=== PATIENT | male | born 1940 | race Caucasian/White ===

== ENCOUNTER 2020-12-28 04:05 | Inpatient (IN) ==
[2020-12-28] MEDS ORDERED: Nitroglycerin 0.4 MG TAB.SUBL SL ONE (04:08)
[2020-12-28 04:14] LABS: ABG Base Excess -5 mEq/L (-2 to 3); ABG HCO3 28 mEq/L (21-27); ABG Oxygen Saturation 99 % (95-98); ABG PCO2 86 mmHg (35-45); ABG PH 7.12 pH Units (7.32-7.45); ABG PO2 212 mmHg (85-104); ABG TCO2 31 mEq/L (20-26); Blood Gas VT 450 cc
[2020-12-28 04:52] LABS: ABG Base Excess -2 mEq/L (-2 to 3); ABG HCO3 28 mEq/L (21-27); ABG Oxygen Saturation 99 % (95-98); ABG PCO2 65 mmHg (35-45); ABG PH 7.23 pH Units (7.32-7.45); ABG PO2 171 mmHg (85-104); ABG TCO2 30 mEq/L (20-26); Blood Gas Modality AVAPS; Blood Gas VT 550 cc
[2020-12-28] MEDS ORDERED: Furosemide 40 MG/4 ML VIAL ONE (05:43)
[2020-12-28] MEDS ORDERED: Furosemide 40 MG/4 ML VIAL IVP ONE (05:45)
[2020-12-28 06:00] LABS: Alanine Aminotransferase 13 Units/L (7-52); Albumin 4.5 g/dL (3.5-5.7); Albumin/Globulin Ratio 1.1 (1.1-2.2); Alkaline Phosphatase 85 Units/L (34-104); Aspartate Amino Transferase 16 Units/L (13-39); BUN/Creatinine Ratio 19 (6-26); Bilirubin,Direct 0.1 mg/dL (0.0-0.2); Bilirubin,Indirect 0.4 mg/dL (0.0-1.0); Bilirubin,Total 0.5 mg/dL (0.3-1.0); Blood Urea Nitrogen 20 mg/dL (8-23); Calcium 9.6 mg/dL (8.6-10.3); Carbon Dioxide 28 mEq/L (23-29); Chloride 97 mEq/L (98-107); Globulin 4.2 g/dL (2.4-3.5); Glucose 517 mg/dL (70-105); Osmolality,Calculated 308 (280-300); Sodium 136 mEq/L (136-145); Total Protein 8.7 g/dL (6.4-8.9); Troponin I 0.09 ng/mL (< 0.04); eGFR For African Americans > 60 (> 60); eGFR For Non-African Americans > 60 (> 60)
[2020-12-28 06:36] LABS: INR 1.1; Prothrombin Time 12.7 Seconds (9.4-12.1)
[2020-12-28 06:38] LABS: Activated Partial Thrombo Time 32.3 Seconds (26.0-36.0)
[2020-12-28 07:18] LABS: Hemoglobin 14.6 g/dL (12.9-16.9); Red Blood Count 4.58 M/mcL (4.19-5.50); White Blood Count 14.1 K/mcL (4.3-11.1)
[2020-12-28 07:19] LABS: Basophils # 0.1 K/mcL (0.0-0.2); Basophils % 0.7 %; Eosinophils # 0.5 K/mcL (0.0-0.6); Eosinophils % 3.3 %; Hematocrit 47.6 % (37.5-50.1); Immature Granulocytes % 0.4 % (0-4); Lymphocytes # 5.7 K/mcL (0.6-4.6); Lymphocytes % 40.2 %; Mean Corpuscular HGB Conc 30.7 g/dL (31.6-35.5); Mean Corpuscular Hemoglobin 31.9 pg (28.0-33.3); Mean Corpuscular Volume 103.9 fL (83.0-100.0); Mean Platelet Volume 10.5 fL (9.4-12.4); Monocytes # 1.1 K/mcL (0.0-1.3); Monocytes % 7.5 %; Neutrophils # 6.8 K/mcL (1.6-8.9); Platelet Count 337 K/mcL (140-400); Red Cell Distribution Width 51.3 % (11.5-14.5); Segmented Neutrophils % 47.9 %
[2020-12-28] MEDS ORDERED: Acetaminophen 325 MG TABLET PO PRN (08:12)
[2020-12-28] MEDS ORDERED: *HR* Dextrose 50 % in Water (Vial) 50 ML VIAL IVP PRN (08:12)
[2020-12-28] MEDS ORDERED: Dextrose Gel 15 GM/37.5 ML TUBE PO PRN ×2 (08:12)
[2020-12-28] MEDS ORDERED: Ondansetron 4 MG/2 ML VIAL IVP PRN (08:12)
[2020-12-28] MEDS ORDERED: Naloxone 0.4 MG/ML INJ IVP PRN (08:12)
[2020-12-28] MEDS ORDERED: D5% in Water 1,000 ML IVC PRN (08:12)
[2020-12-28] MEDS ORDERED: Perflutren Lipid Microsphere 1.3 ML in 0.9 % Sodium Chloride 8.7 ML IVP PRN (08:18)
[2020-12-28] MEDS ORDERED: Aspirin 325 MG TABLET PO ONE (08:19)
[2020-12-28] MEDS ORDERED: *HR* Heparin 5,000 UNIT/ML VIAL IVP ONE (08:19)
[2020-12-28] MEDS ORDERED: *HR* Heparin 5,000 UNIT/ML VIAL IVP PRN ×2 (08:19)
[2020-12-28] MEDS ORDERED: Nitroglycerin 0.4 MG TAB.SUBL SL PRN (08:24)
[2020-12-28] MEDS: Heparin 25,000UNIT/250ML 1/2NS 25,000 UNIT/250 ML IV.SOLN IVC SCH (09:13)
[2020-12-28] MEDS: Insulin DETEMIR 100 UNIT/ML X5UNITS SUBQ SCH ×2 (09:14→21:23)
[2020-12-28 09:36] LABS: Heparin anti-factor XA UFH < 0.04 IU/mL (0.30-0.70)
[2020-12-28 09:37] LABS: INR 1.2; Prothrombin Time 13.6 Seconds (9.4-12.1)
[2020-12-28] MEDS: Insulin LISPRO 300 UNITS/3 ML VIAL SUBQ SCH ×3 (13:10→23:26)
[2020-12-28] MEDS: Furosemide 40 MG/4 ML VIAL IVP SCH (21:22)
[2020-12-28] MEDS: Metoprolol 100 MG TABLET PO SCH (21:23)
[2020-12-29 05:17] LABS: BUN/Creatinine Ratio 26 (6-26); Blood Urea Nitrogen 19 mg/dL (8-23); Calcium 9.2 mg/dL (8.6-10.3); Carbon Dioxide 30 mEq/L (23-29); Chloride 99 mEq/L (98-107); Glucose 77 mg/dL (70-105); Osmolality,Calculated 283 (280-300); Potassium 3.7 mEq/L (3.5-5.1); Sodium 136 mEq/L (136-145); eGFR For African Americans > 60 (> 60); eGFR For Non-African Americans > 60 (> 60)
[2020-12-29 05:18] LABS: Chol/HDL Ratio 2.7 (0-4.9)
[2020-12-29] MEDS: Insulin LISPRO 300 UNITS/3 ML VIAL SUBQ SCH ×3 (05:38→17:23)
[2020-12-29 06:38] LABS: Basophils % 0.4 %; Eosinophils # 0.3 K/mcL (0.0-0.6); Eosinophils % 2.9 %; Hematocrit 39.3 % (37.5-50.1); Hemoglobin 12.6 g/dL (12.9-16.9); Immature Granulocytes % 0.3 % (0-4); Lymphocytes # 1.7 K/mcL (0.6-4.6); Lymphocytes % 17.9 %; Mean Corpuscular HGB Conc 32.1 g/dL (31.6-35.5); Mean Corpuscular Hemoglobin 31.3 pg (28.0-33.3); Mean Corpuscular Volume 97.5 fL (83.0-100.0); Mean Platelet Volume 10.1 fL (9.4-12.4); Monocytes # 0.8 K/mcL (0.0-1.3); Neutrophils # 6.6 K/mcL (1.6-8.9); Platelet Count 222 K/mcL (140-400); Red Blood Count 4.03 M/mcL (4.19-5.50); Red Cell Distribution Width 13.6 % (11.5-14.5); Segmented Neutrophils % 70.5 %; White Blood Count 9.4 K/mcL (4.3-11.1)
[2020-12-29] MEDS: Insulin DETEMIR 100 UNIT/ML X5UNITS SUBQ SCH ×2 (07:59→20:52)
[2020-12-29] MEDS: Metoprolol 100 MG TABLET PO SCH ×2 (08:15→20:52)
[2020-12-29] MEDS: Aspirin Enteric Coated 81 MG Tablet PO SCH (08:15)
[2020-12-29] MEDS: Furosemide 40 MG/4 ML VIAL IVP SCH ×2 (08:15→20:52)
[2020-12-29] MEDS: Heparin 25,000UNIT/250ML 1/2NS 25,000 UNIT/250 ML IV.SOLN IVC SCH (08:16)
[2020-12-29] MEDS: *HR* HYDROcodone/Acet 5/325 mg TABLET PO PRN (11:50)
[2020-12-29] MEDS ORDERED: polyethylene glycoL 3350 17 GM POWD.PACK PO PRN (13:48)
[2020-12-30] MEDS: Insulin LISPRO 300 UNITS/3 ML VIAL SUBQ SCH ×4 (00:13→16:27)
[2020-12-30 04:38] LABS: Basophils % 0.3 %; Eosinophils # 0.2 K/mcL (0.0-0.6); Eosinophils % 2.3 %; Hematocrit 43.6 % (37.5-50.1); Hemoglobin 14.1 g/dL (12.9-16.9); Immature Granulocytes % 0.2 % (0-4); Lymphocytes # 1.6 K/mcL (0.6-4.6); Lymphocytes % 17.5 %; Mean Corpuscular HGB Conc 32.3 g/dL (31.6-35.5); Mean Corpuscular Hemoglobin 31.4 pg (28.0-33.3); Mean Corpuscular Volume 97.1 fL (83.0-100.0); Mean Platelet Volume 10.2 fL (9.4-12.4); Monocytes # 0.8 K/mcL (0.0-1.3); Monocytes % 8.9 %; Neutrophils # 6.4 K/mcL (1.6-8.9); Platelet Count 221 K/mcL (140-400); Red Blood Count 4.49 M/mcL (4.19-5.50); Red Cell Distribution Width 13.3 % (11.5-14.5); Segmented Neutrophils % 70.8 %; White Blood Count 9.1 K/mcL (4.3-11.1)
[2020-12-30 04:56] LABS: BUN/Creatinine Ratio 27 (6-26); Blood Urea Nitrogen 22 mg/dL (8-23); Calcium 9.6 mg/dL (8.6-10.3); Carbon Dioxide 31 mEq/L (23-29); Chloride 93 mEq/L (98-107); Glucose 182 mg/dL (70-105); Osmolality,Calculated 282 (280-300); Sodium 132 mEq/L (136-145); eGFR For African Americans > 60 (> 60); eGFR For Non-African Americans > 60 (> 60)
[2020-12-30] MEDS: *HR* HYDROcodone/Acet 5/325 mg TABLET PO PRN (08:01)
[2020-12-30] MEDS: Aspirin Enteric Coated 81 MG Tablet PO SCH (08:02)
[2020-12-30] MEDS: Metoprolol 100 MG TABLET PO SCH (08:02)
[2020-12-30] MEDS: Insulin DETEMIR 100 UNIT/ML X5UNITS SUBQ SCH ×2 (08:02→20:01)
[2020-12-30 09:21] LABS: Estimated Average Glucose 203 mg/dl; Hemoglobin A1C 8.7 %
[2020-12-30] MEDS: Heparin 25,000UNIT/250ML 1/2NS 25,000 UNIT/250 ML IV.SOLN IVC SCH (09:40)
[2020-12-30] MEDS ORDERED: Heparin 1,000 UNITS/500 mL 500 ML ONE (11:24)
[2020-12-30] MEDS ORDERED: ISOVUE-370 200 ML INFUS..BTL ONE (11:24)
[2020-12-30] MEDS ORDERED: *HR* Heparin 10,000 UNIT/10 ML VIAL ONE (11:24)
[2020-12-30] MEDS ORDERED: 0.9 % Sodium Chloride 2,000 ML ONE (11:24)
[2020-12-30] MEDS ORDERED: Nitroglycerin 1,000 MCG/10 ML VIAL IV ONE (11:25)
[2020-12-30] MEDS ORDERED: *HR* Midazolam HCl 2 MG/2 ML VIAL ONE (12:15)
[2020-12-30] MEDS ORDERED: *HR* FentaNYL (PF) 100 MCG/2 ML VIAL ONE (12:15)
[2020-12-30] MEDS: Metoprolol XL (24 HR) Succ 50 MG TAB.ER.24H PO SCH (20:00)
[2020-12-31] MEDS: Insulin LISPRO 300 UNITS/3 ML VIAL SUBQ SCH ×5 (00:47→19:57)
[2020-12-31] MEDS: *HR* HYDROcodone/Acet 5/325 mg TABLET PO PRN ×2 (04:07→11:17)
[2020-12-31 04:23] LABS: Basophils % 0.6 %; Eosinophils # 0.2 K/mcL (0.0-0.6); Eosinophils % 2.6 %; Hematocrit 43.1 % (37.5-50.1); Hemoglobin 14.3 g/dL (12.9-16.9); Immature Granulocytes % 0.3 % (0-4); Lymphocytes # 1.4 K/mcL (0.6-4.6); Lymphocytes % 20.2 %; Mean Corpuscular HGB Conc 33.2 g/dL (31.6-35.5); Mean Corpuscular Hemoglobin 32.3 pg (28.0-33.3); Mean Corpuscular Volume 97.3 fL (83.0-100.0); Mean Platelet Volume 10.1 fL (9.4-12.4); Monocytes # 0.8 K/mcL (0.0-1.3); Neutrophils # 4.6 K/mcL (1.6-8.9); Platelet Count 230 K/mcL (140-400); Red Blood Count 4.43 M/mcL (4.19-5.50); Red Cell Distribution Width 13.3 % (11.5-14.5); Segmented Neutrophils % 65.3 %
[2020-12-31 04:40] LABS: BUN/Creatinine Ratio 26 (6-26); Blood Urea Nitrogen 21 mg/dL (8-23); Calcium 9.7 mg/dL (8.6-10.3); Carbon Dioxide 29 mEq/L (23-29); Chloride 97 mEq/L (98-107); Glucose 187 mg/dL (70-105); Osmolality,Calculated 284 (280-300); Potassium 4.3 mEq/L (3.5-5.1); Sodium 133 mEq/L (136-145); eGFR For African Americans > 60 (> 60); eGFR For Non-African Americans > 60 (> 60)
[2020-12-31] MEDS: Metoprolol XL (24 HR) Succ 50 MG TAB.ER.24H PO SCH ×2 (08:09→20:01)
[2020-12-31] MEDS: Aspirin Enteric Coated 81 MG Tablet PO SCH (08:09)
[2020-12-31] MEDS: Insulin DETEMIR 100 UNIT/ML X5UNITS SUBQ SCH ×2 (09:33→20:56)
[2020-12-31] MEDS: Heparin 25,000UNIT/250ML 1/2NS 25,000 UNIT/250 ML IV.SOLN IVC SCH (11:18)
[2020-12-31] MEDS: Furosemide 40 MG TABLET PO SCH (17:18)
[2020-12-31] MEDS ORDERED: Insulin LISPRO 300 UNITS/3 ML VIAL SUBQ SCH (21:00)
[2021-01-01 02:08] LABS: Basophils % 0.6 %; Eosinophils # 0.3 K/mcL (0.0-0.6); Eosinophils % 3.6 %; Hematocrit 42.2 % (37.5-50.1); Hemoglobin 13.8 g/dL (12.9-16.9); Immature Granulocytes % 0.3 % (0-4); Lymphocytes # 1.6 K/mcL (0.6-4.6); Mean Corpuscular HGB Conc 32.7 g/dL (31.6-35.5); Mean Corpuscular Hemoglobin 31.1 pg (28.0-33.3); Mean Platelet Volume 10.1 fL (9.4-12.4); Monocytes # 0.7 K/mcL (0.0-1.3); Monocytes % 9.1 %; Neutrophils # 4.7 K/mcL (1.6-8.9); Platelet Count 242 K/mcL (140-400); Red Blood Count 4.44 M/mcL (4.19-5.50); Red Cell Distribution Width 13.2 % (11.5-14.5); Segmented Neutrophils % 64.4 %; White Blood Count 7.3 K/mcL (4.3-11.1)
[2021-01-01 02:25] LABS: BUN/Creatinine Ratio 30 (6-26); Blood Urea Nitrogen 28 mg/dL (8-23); Calcium 9.6 mg/dL (8.6-10.3); Carbon Dioxide 25 mEq/L (23-29); Chloride 96 mEq/L (98-107); Glucose 240 mg/dL (70-105); Osmolality,Calculated 281 (280-300); Potassium 4.3 mEq/L (3.5-5.1); Sodium 129 mEq/L (136-145); eGFR For African Americans > 60 (> 60); eGFR For Non-African Americans > 60 (> 60)
[2021-01-01] MEDS: *HR* HYDROcodone/Acet 5/325 mg TABLET PO PRN (07:53)
[2021-01-01] MEDS: Metoprolol XL (24 HR) Succ 50 MG TAB.ER.24H PO SCH (07:53)
[2021-01-01] MEDS: Aspirin Enteric Coated 81 MG Tablet PO SCH (07:53)
[2021-01-01] MEDS: Furosemide 40 MG TABLET PO SCH ×2 (07:53→12:01)
[2021-01-01] MEDS ORDERED: Isosorbide MONOnitrate (24 HR) 60 MG TAB.ER.24H PO SCH (09:00)
[2021-01-01] MEDS: Insulin LISPRO 300 UNITS/3 ML VIAL SUBQ SCH ×3 (11:03→17:02)
[2021-01-01] MEDS: Insulin DETEMIR 100 UNIT/ML X5UNITS SUBQ SCH (11:17)
[2021-01-01] MEDS: Heparin 25,000UNIT/250ML 1/2NS 25,000 UNIT/250 ML IV.SOLN IVC SCH (11:18)
[2021-01-01] MEDS ORDERED: 0.9 % Sodium Chloride 500 ML IVC ONE (11:54)
[2021-01-01 16:27] VITALS: BP 126/67
== END 2021-01-01 18:20 | disposition short-term general hospital (02) | DRG 280 ==
LOC: EMEROOARM 04:05 → 2NNU 04:05 → SUATTDRO 08:31
PROVIDERS: ADMIT Family Medicine; ATTEND Student in an Organized Health Care Education/Training Program

== ENCOUNTER 2021-04-18 16:52 | Inpatient (IN) ==
[2021-04-18 17:43] LABS: Basophils % 0.1 %; Eosinophils # 0.1 K/mcL (0.0-0.6); Eosinophils % 0.4 %; Hematocrit 34.4 % (37.5-50.1); Hemoglobin 11.3 g/dL (12.9-16.9); Immature Granulocytes % 0.7 % (0-4); Lymphocytes # 1.2 K/mcL (0.6-4.6); Lymphocytes % 9.1 %; Mean Corpuscular HGB Conc 32.8 g/dL (31.6-35.5); Mean Corpuscular Hemoglobin 31.7 pg (28.0-33.3); Mean Corpuscular Volume 96.4 fL (83.0-100.0); Monocytes # 1.5 K/mcL (0.0-1.3); Neutrophils # 10.6 K/mcL (1.6-8.9); Platelet Count 233 K/mcL (140-400); Red Blood Count 3.57 M/mcL (4.19-5.50); Red Cell Distribution Width 13.5 % (11.5-14.5); Segmented Neutrophils % 78.7 %; White Blood Count 13.5 K/mcL (4.3-11.1)
[2021-04-18] MEDS ORDERED: Morphine Sulfate 2 MG/ML SYRINGE IVP STA (17:51)
[2021-04-18] MEDS ORDERED: MetroNIDAZOLE 500 MG/100 ML 500 MG/100 ML BAG IVPB ONE (18:01)
[2021-04-18] MEDS ORDERED: Vancomycin 1,500 MG/265 ML IV.SOLN IVPB ONE (18:01)
[2021-04-18 18:07] LABS: Alanine Aminotransferase 10 Units/L (7-52); Albumin 3.7 g/dL (3.5-5.7); Alkaline Phosphatase 57 Units/L (34-104); Aspartate Amino Transferase 13 Units/L (13-39); BUN/Creatinine Ratio 22 (6-26); Blood Urea Nitrogen 22 mg/dL (8-23); Calcium 9.1 mg/dL (8.6-10.3); Carbon Dioxide 25 mEq/L (23-29); Chloride 94 mEq/L (98-107); Globulin 3.8 g/dL (2.4-3.5); Glucose 138 mg/dL (70-105); Osmolality,Calculated 274 (280-300); Potassium 3.6 mEq/L (3.5-5.1); Sodium 129 mEq/L (136-145); Total Protein 7.5 g/dL (6.4-8.9); Troponin I 0.03 ng/mL (< 0.04); eGFR For African Americans > 60 (> 60); eGFR For Non-African Americans > 60 (> 60)
[2021-04-18 18:20] LABS: Thyroid Stimulating Hormone 1.697 mcIU/mL (0.340-5.600)
[2021-04-18] MEDS ORDERED: Clindamycin 600 MG/50 ML 600 MG/50 ML IV.SOLN IVPB ONE (19:00)
[2021-04-18 19:38] LABS: Bilirubin,Urine Negative (Negative); Blood,Urine Negative (Negative); Clarity,Urine Clear (Clear); Color,Urine Yellow (Yellow); Glucose,Urine (UA) Normal (Normal); Hyaline Casts,Urine Few per lpf (None Seen); Ketones,Urine Negative (Negative); Leukocyte Esterase,Urine Negative (Negative); Mucus,Urine Few per lpf (None-Few); Nitrite,Urine Negative (Negative); Protein,Urine 30 mg/dL (Neg-Trace); RBC,Urine 0-3 per hpf (0-3); Specific Gravity,Urine 1.017 (1.010-1.025); Squamous Epithelial Cell,Urine Few per hpf (None-Few); Urobilinogen,Urine Normal (Normal); WBC,Urine 0-3 per hpf (0-3)
[2021-04-18] MEDS ORDERED: Acetaminophen IV 1,000 MG/100 ML BAG IVPB PRN (20:33)
[2021-04-18] MEDS ORDERED: Bupivacaine-MPF 0.25% 10 ML VIAL ONE (20:38)
[2021-04-18] MEDS ORDERED: *HR* Midazolam HCl 2 MG/2 ML VIAL ONE (20:41)
[2021-04-18 21:12] LABS: Adenovirus Not Detected (Not Detect); Bordetella Pertussis Not Detected (Not Detect); Chlamydophila pneumoniae Not Detected (Not Detect); Coronavirus 229E Not Detected (Not Detect); Coronavirus HKU1 Not Detected (Not Detect); Coronavirus NL63 Not Detected (Not Detect); Coronavirus OC43 Not Detected (Not Detect); Human Metapneumovirus Not Detected (Not Detect); Human Rhinovirus/Enterovirus Not Detected (Not Detect); Influenza A Subtype 2009 H1 Not Detected (Not Detect); Influenza B Not Detected (Not Detect); Mycoplasma pneumoniae Not Detected (Not Detect); Parainfluenza Virus 1 Not Detected (Not Detect); Parainfluenza Virus 2 Not Detected (Not Detect); Parainfluenza Virus 3 Not Detected (Not Detect); Parainfluenza Virus 4 Not Detected (Not Detect); Respiratory Syncytial Virus Not Detected (Not Detect); SARS-CoV-2 Not Detected (Not Detect)
[2021-04-18] MEDS ORDERED: Vancomycin 1,000 MG VIAL ONE (21:16)
[2021-04-18] MEDS ORDERED: Naloxone 0.4 MG/ML INJ IVP PRN (23:28)
[2021-04-19] MEDS ORDERED: *HR* Dextrose 50 % in Water (Vial) 50 ML VIAL IVP PRN ×2 (02:47→03:27)
[2021-04-19] MEDS ORDERED: D5% in Water 1,000 ML IVC PRN ×2 (02:47→03:27)
[2021-04-19] MEDS ORDERED: Dextrose Gel 15 GM/37.5 ML TUBE PO PRN ×4 (02:47→03:27)
[2021-04-19] MEDS ORDERED: Naloxone 0.4 MG/ML INJ IVP PRN (03:27)
[2021-04-19] MEDS ORDERED: Acetaminophen IV 1,000 MG/100 ML BAG IVPB PRN (03:27)
[2021-04-19] MEDS: Insulin LISPRO 300 UNITS/3 ML VIAL SUBQ SCH ×5 (05:32→22:00)
[2021-04-19] MEDS ORDERED: Insulin LISPRO 300 UNITS/3 ML VIAL SUBQ SCH (06:00)
[2021-04-19 07:34] LABS: Basophils % 0.3 %; Eosinophils # 0.2 K/mcL (0.0-0.6); Eosinophils % 1.4 %; Hematocrit 37.6 % (37.5-50.1); Immature Granulocytes % 0.4 % (0-4); Lymphocytes # 1.2 K/mcL (0.6-4.6); Lymphocytes % 11.1 %; Mean Corpuscular HGB Conc 31.9 g/dL (31.6-35.5); Mean Corpuscular Volume 97.2 fL (83.0-100.0); Mean Platelet Volume 9.8 fL (9.4-12.4); Monocytes # 1.1 K/mcL (0.0-1.3); Monocytes % 10.7 %; Platelet Count 232 K/mcL (140-400); Red Blood Count 3.87 M/mcL (4.19-5.50); Red Cell Distribution Width 13.7 % (11.5-14.5); Segmented Neutrophils % 76.1 %; White Blood Count 10.5 K/mcL (4.3-11.1)
[2021-04-19 07:50] LABS: Alanine Aminotransferase 10 Units/L (7-52); Albumin 3.6 g/dL (3.5-5.7); Albumin/Globulin Ratio 0.9 (1.1-2.2); Alkaline Phosphatase 56 Units/L (34-104); Aspartate Amino Transferase 14 Units/L (13-39); BUN/Creatinine Ratio 23 (6-26); Bilirubin,Total 0.9 mg/dL (0.3-1.0); Blood Urea Nitrogen 21 mg/dL (8-23); Carbon Dioxide 23 mEq/L (23-29); Chloride 99 mEq/L (98-107); Globulin 3.9 g/dL (2.4-3.5); Glucose 81 mg/dL (70-105); Magnesium 1.5 mg/dL (1.6-2.6); Osmolality,Calculated 276 (280-300); Phosphorous 2.9 mg/dL (2.7-4.5); Potassium 3.6 mEq/L (3.5-5.1); Sodium 132 mEq/L (136-145); Total Protein 7.5 g/dL (6.4-8.9); eGFR For African Americans > 60 (> 60); eGFR For Non-African Americans > 60 (> 60)
[2021-04-19] MEDS ORDERED: Vancomycin 1,250 MG/262.5 ML IV.SOLN IVPB SCH (08:00)
[2021-04-19] MEDS: Vancomycin 1,250 MG/262.5 ML IV.SOLN IVPB SCH ×2 (08:27→22:01)
[2021-04-19] MEDS: MetroNIDAZOLE 500 MG/100 ML 500 MG/100 ML BAG IVPB SCH ×2 (10:39→17:17)
[2021-04-19] MEDS: Clindamycin 600 MG/50 ML 600 MG/50 ML IV.SOLN IVPB SCH ×2 (10:58→17:16)
[2021-04-20] MEDS: Acetaminophen 325 MG TABLET PO PRN (00:07)
[2021-04-20] MEDS: MetroNIDAZOLE 500 MG/100 ML 500 MG/100 ML BAG IVPB SCH ×3 (00:11→16:14)
[2021-04-20] MEDS: Clindamycin 600 MG/50 ML 600 MG/50 ML IV.SOLN IVPB SCH ×3 (00:11→16:18)
[2021-04-20 02:11] LABS: Basophils % 0.2 %; Eosinophils # 0.2 K/mcL (0.0-0.6); Eosinophils % 1.6 %; Hematocrit 33.7 % (37.5-50.1); Hemoglobin 11.1 g/dL (12.9-16.9); Immature Granulocytes % 0.5 % (0-4); Lymphocytes % 9.4 %; Mean Corpuscular HGB Conc 32.9 g/dL (31.6-35.5); Mean Corpuscular Hemoglobin 31.3 pg (28.0-33.3); Mean Corpuscular Volume 94.9 fL (83.0-100.0); Mean Platelet Volume 9.7 fL (9.4-12.4); Monocytes # 1.1 K/mcL (0.0-1.3); Neutrophils # 7.8 K/mcL (1.6-8.9); Platelet Count 235 K/mcL (140-400); Red Blood Count 3.55 M/mcL (4.19-5.50); Red Cell Distribution Width 13.4 % (11.5-14.5); Segmented Neutrophils % 77.3 %; White Blood Count 10.1 K/mcL (4.3-11.1)
[2021-04-20 02:28] LABS: BUN/Creatinine Ratio 17 (6-26); Blood Urea Nitrogen 14 mg/dL (8-23); Calcium 8.6 mg/dL (8.6-10.3); Carbon Dioxide 21 mEq/L (23-29); Chloride 97 mEq/L (98-107); Glucose 231 mg/dL (70-105); Osmolality,Calculated 272 (280-300); Potassium 3.7 mEq/L (3.5-5.1); Sodium 127 mEq/L (136-145); eGFR For African Americans > 60 (> 60); eGFR For Non-African Americans > 60 (> 60)
[2021-04-20] MEDS ORDERED: Nitroglycerin 0.4 MG TAB.SUBL SL PRN (07:59)
[2021-04-20] MEDS: Vancomycin 1,250 MG/262.5 ML IV.SOLN IVPB SCH (08:10)
[2021-04-20] MEDS: Insulin LISPRO 300 UNITS/3 ML VIAL SUBQ SCH ×4 (08:20→20:20)
[2021-04-20] MEDS: DilTIAZem CD (24hr) 240 MG CAP.ER.24H PO SCH (08:38)
[2021-04-20] MEDS: Isosorbide MONOnitrate (24 HR) 60 MG TAB.ER.24H PO SCH (08:38)
[2021-04-20] MEDS: Furosemide 40 MG TABLET PO SCH (08:38)
[2021-04-20] MEDS: Aspirin Enteric Coated 81 MG Tablet PO SCH (08:38)
[2021-04-20] MEDS: Metoprolol 100 MG TABLET PO SCH ×2 (08:38→21:40)
[2021-04-21] MEDS: Vancomycin 1,250 MG/262.5 ML IV.SOLN IVPB SCH ×2 (00:15→09:44)
[2021-04-21] MEDS: MetroNIDAZOLE 500 MG/100 ML 500 MG/100 ML BAG IVPB SCH ×2 (00:17→09:43)
[2021-04-21 03:19] LABS: Hematocrit 31.9 % (37.5-50.1); Hemoglobin 10.5 g/dL (12.9-16.9); Immature Granulocytes % 0.5 % (0-4); Lymphocytes % 13.5 %; Mean Corpuscular HGB Conc 32.9 g/dL (31.6-35.5); Mean Corpuscular Hemoglobin 31.3 pg (28.0-33.3); Mean Corpuscular Volume 95.2 fL (83.0-100.0); Mean Platelet Volume 9.9 fL (9.4-12.4); Monocytes % 11.6 %; Platelet Count 270 K/mcL (140-400); Red Blood Count 3.35 M/mcL (4.19-5.50); Red Cell Distribution Width 13.4 % (11.5-14.5); Segmented Neutrophils % 71.5 %; White Blood Count 9.9 K/mcL (4.3-11.1)
[2021-04-21 03:20] LABS: Basophils % 0.3 %; Eosinophils # 0.3 K/mcL (0.0-0.6); Eosinophils % 2.6 %; Lymphocytes # 1.3 K/mcL (0.6-4.6); Monocytes # 1.2 K/mcL (0.0-1.3); Neutrophils # 7.1 K/mcL (1.6-8.9)
[2021-04-21 03:38] LABS: BUN/Creatinine Ratio 20 (6-26); Blood Urea Nitrogen 19 mg/dL (8-23); Calcium 8.9 mg/dL (8.6-10.3); Carbon Dioxide 22 mEq/L (23-29); Chloride 96 mEq/L (98-107); Glucose 238 mg/dL (70-105); Osmolality,Calculated 274 (280-300); Sodium 127 mEq/L (136-145); eGFR For African Americans > 60 (> 60); eGFR For Non-African Americans > 60 (> 60)
[2021-04-21] MEDS: Isosorbide MONOnitrate (24 HR) 60 MG TAB.ER.24H PO SCH (09:43)
[2021-04-21] MEDS: Metoprolol 100 MG TABLET PO SCH ×2 (09:43→22:30)
[2021-04-21] MEDS: Aspirin Enteric Coated 81 MG Tablet PO SCH (09:43)
[2021-04-21] MEDS: Insulin LISPRO 300 UNITS/3 ML VIAL SUBQ SCH ×4 (09:43→22:29)
[2021-04-21] MEDS: DilTIAZem CD (24hr) 240 MG CAP.ER.24H PO SCH (09:43)
[2021-04-21] MEDS: Furosemide 40 MG TABLET PO SCH (09:44)
[2021-04-21] MEDS ORDERED: cefTRIAXone 2,000 MG in Water for inj. (sterile) 20 ML IVPB SCH (11:00)
[2021-04-21] MEDS: cefTRIAXone 2,000 MG in Water for inj. (sterile) 20 ML IVP SCH (12:03)
[2021-04-21] MEDS: Insulin DETEMIR 100 UNIT/ML X5UNITS SUBQ SCH (12:03)
[2021-04-21] MEDS: metroNIDAZOLE 500 MG TABLET PO SCH ×2 (17:07→22:30)
[2021-04-21] MEDS: Acetaminophen 325 MG TABLET PO PRN (22:30)
[2021-04-21] MEDS: Lactobacillus 1 EACH CAP.SPRINK PO SCH (22:30)
[2021-04-22 03:54] LABS: Basophils % 0.6 %; Eosinophils # 0.4 K/mcL (0.0-0.6); Eosinophils % 5.1 %; Hematocrit 31.1 % (37.5-50.1); Hemoglobin 10.1 g/dL (12.9-16.9); Immature Granulocytes % 0.7 % (0-4); Lymphocytes # 1.1 K/mcL (0.6-4.6); Lymphocytes % 14.8 %; Mean Corpuscular HGB Conc 32.5 g/dL (31.6-35.5); Mean Corpuscular Hemoglobin 31.3 pg (28.0-33.3); Mean Corpuscular Volume 96.3 fL (83.0-100.0); Mean Platelet Volume 9.8 fL (9.4-12.4); Monocytes # 0.9 K/mcL (0.0-1.3); Monocytes % 12.3 %; Neutrophils # 4.8 K/mcL (1.6-8.9); Platelet Count 273 K/mcL (140-400); Red Blood Count 3.23 M/mcL (4.19-5.50); Red Cell Distribution Width 13.6 % (11.5-14.5); Segmented Neutrophils % 66.5 %; White Blood Count 7.2 K/mcL (4.3-11.1)
[2021-04-22 04:14] LABS: BUN/Creatinine Ratio 19 (6-26); Blood Urea Nitrogen 16 mg/dL (8-23); C-Reactive Protein 181 mg/L (Less than 10); Calcium 8.8 mg/dL (8.6-10.3); Carbon Dioxide 26 mEq/L (23-29); Chloride 97 mEq/L (98-107); Glucose 256 mg/dL (70-105); Osmolality,Calculated 278 (280-300); Sodium 129 mEq/L (136-145); eGFR For African Americans > 60 (> 60); eGFR For Non-African Americans > 60 (> 60)
[2021-04-22] MEDS: Insulin DETEMIR 100 UNIT/ML X5UNITS SUBQ SCH (08:48)
[2021-04-22] MEDS: Insulin LISPRO 300 UNITS/3 ML VIAL SUBQ SCH ×4 (08:48→21:06)
[2021-04-22] MEDS: cefTRIAXone 2,000 MG in Water for inj. (sterile) 20 ML IVP SCH (08:50)
[2021-04-22] MEDS: metroNIDAZOLE 500 MG TABLET PO SCH ×3 (08:51→21:04)
[2021-04-22] MEDS: Aspirin Enteric Coated 81 MG Tablet PO SCH (08:51)
[2021-04-22] MEDS: Lactobacillus 1 EACH CAP.SPRINK PO SCH ×2 (08:52→21:04)
[2021-04-22] MEDS: Metoprolol 100 MG TABLET PO SCH ×2 (08:52→21:04)
[2021-04-22] MEDS: Furosemide 40 MG TABLET PO SCH (08:52)
[2021-04-22] MEDS: DilTIAZem CD (24hr) 240 MG CAP.ER.24H PO SCH (08:52)
[2021-04-22] MEDS: Isosorbide MONOnitrate (24 HR) 60 MG TAB.ER.24H PO SCH (08:52)
[2021-04-22] MEDS ORDERED: Insulin DETEMIR 100 UNIT/ML X5UNITS SUBQ ONE (10:35)
[2021-04-23 01:03] LABS: Basophils # 0.1 K/mcL (0.0-0.2); Basophils % 0.6 %; Eosinophils # 0.5 K/mcL (0.0-0.6); Eosinophils % 5.6 %; Hematocrit 31.8 % (37.5-50.1); Hemoglobin 10.5 g/dL (12.9-16.9); Immature Granulocytes % 0.6 % (0-4); Lymphocytes # 1.4 K/mcL (0.6-4.6); Lymphocytes % 17.7 %; Mean Corpuscular Hemoglobin 31.7 pg (28.0-33.3); Mean Corpuscular Volume 96.1 fL (83.0-100.0); Mean Platelet Volume 9.9 fL (9.4-12.4); Monocytes % 12.2 %; Neutrophils # 5.1 K/mcL (1.6-8.9); Platelet Count 326 K/mcL (140-400); Red Blood Count 3.31 M/mcL (4.19-5.50); Red Cell Distribution Width 13.6 % (11.5-14.5); Segmented Neutrophils % 63.3 %
[2021-04-23 01:22] LABS: BUN/Creatinine Ratio 23 (6-26); Blood Urea Nitrogen 21 mg/dL (8-23); Calcium 8.9 mg/dL (8.6-10.3); Carbon Dioxide 27 mEq/L (23-29); Chloride 98 mEq/L (98-107); Glucose 228 mg/dL (70-105); Osmolality,Calculated 284 (280-300); Sodium 132 mEq/L (136-145); eGFR For African Americans > 60 (> 60); eGFR For Non-African Americans > 60 (> 60)
[2021-04-23] MEDS: Aspirin Enteric Coated 81 MG Tablet PO SCH (07:39)
[2021-04-23] MEDS: metroNIDAZOLE 500 MG TABLET PO SCH ×3 (07:39→22:26)
[2021-04-23] MEDS: Lactobacillus 1 EACH CAP.SPRINK PO SCH ×2 (07:39→22:26)
[2021-04-23] MEDS: Metoprolol 100 MG TABLET PO SCH ×2 (07:40→22:27)
[2021-04-23] MEDS: Furosemide 40 MG TABLET PO SCH (07:40)
[2021-04-23] MEDS: DilTIAZem CD (24hr) 240 MG CAP.ER.24H PO SCH (07:40)
[2021-04-23] MEDS: Isosorbide MONOnitrate (24 HR) 60 MG TAB.ER.24H PO SCH (07:40)
[2021-04-23] MEDS: cefTRIAXone 2,000 MG in Water for inj. (sterile) 20 ML IVP SCH (07:41)
[2021-04-23] MEDS: Insulin DETEMIR 100 UNIT/ML X5UNITS SUBQ SCH (07:41)
[2021-04-23] MEDS: Insulin LISPRO 300 UNITS/3 ML VIAL SUBQ SCH ×4 (07:41→22:28)
[2021-04-23] MEDS: Acetaminophen 325 MG TABLET PO PRN (11:50)
[2021-04-24 04:51] LABS: Hematocrit 33.8 % (37.5-50.1); Hemoglobin 11.3 g/dL (12.9-16.9); Mean Corpuscular HGB Conc 33.4 g/dL (31.6-35.5); Mean Corpuscular Hemoglobin 31.7 pg (28.0-33.3); Mean Corpuscular Volume 94.9 fL (83.0-100.0); Mean Platelet Volume 9.8 fL (9.4-12.4); Platelet Count 356 K/mcL (140-400); Red Blood Count 3.56 M/mcL (4.19-5.50); Red Cell Distribution Width 13.5 % (11.5-14.5); White Blood Count 7.1 K/mcL (4.3-11.1)
[2021-04-24 05:11] LABS: BUN/Creatinine Ratio 19 (6-26); Blood Urea Nitrogen 16 mg/dL (8-23); Calcium 9.1 mg/dL (8.6-10.3); Carbon Dioxide 28 mEq/L (23-29); Chloride 97 mEq/L (98-107); Glucose 181 mg/dL (70-105); Osmolality,Calculated 278 (280-300); Potassium 4.5 mEq/L (3.5-5.1); Sodium 131 mEq/L (136-145); eGFR For African Americans > 60 (> 60); eGFR For Non-African Americans > 60 (> 60)
[2021-04-24] MEDS: Isosorbide MONOnitrate (24 HR) 60 MG TAB.ER.24H PO SCH (08:46)
[2021-04-24] MEDS: DilTIAZem CD (24hr) 240 MG CAP.ER.24H PO SCH (08:46)
[2021-04-24] MEDS: Metoprolol 100 MG TABLET PO SCH ×2 (08:46→21:03)
[2021-04-24] MEDS: Lactobacillus 1 EACH CAP.SPRINK PO SCH ×2 (08:46→21:03)
[2021-04-24] MEDS: metroNIDAZOLE 500 MG TABLET PO SCH ×3 (08:46→21:03)
[2021-04-24] MEDS: Aspirin Enteric Coated 81 MG Tablet PO SCH (08:47)
[2021-04-24] MEDS: Insulin DETEMIR 100 UNIT/ML X5UNITS SUBQ SCH (08:47)
[2021-04-24] MEDS: Insulin LISPRO 300 UNITS/3 ML VIAL SUBQ SCH ×4 (08:47→21:03)
[2021-04-24] MEDS: cefTRIAXone 2,000 MG in Water for inj. (sterile) 20 ML IVP SCH (08:48)
[2021-04-24] MEDS: Furosemide 40 MG TABLET PO SCH (08:48)
[2021-04-24 11:27] LABS: INR 1.6
[2021-04-24 11:29] LABS: Activated Partial Thrombo Time 29.7 Seconds (26.0-36.0)
[2021-04-24] MEDS: Acetaminophen 325 MG TABLET PO PRN (21:03)
[2021-04-25 05:16] LABS: Hematocrit 35.2 % (37.5-50.1); Hemoglobin 11.7 g/dL (12.9-16.9); Mean Corpuscular HGB Conc 33.2 g/dL (31.6-35.5); Mean Corpuscular Hemoglobin 31.5 pg (28.0-33.3); Mean Corpuscular Volume 94.6 fL (83.0-100.0); Mean Platelet Volume 9.6 fL (9.4-12.4); Platelet Count 371 K/mcL (140-400); Red Blood Count 3.72 M/mcL (4.19-5.50); Red Cell Distribution Width 13.5 % (11.5-14.5); White Blood Count 5.9 K/mcL (4.3-11.1)
[2021-04-25 05:31] LABS: BUN/Creatinine Ratio 21 (6-26); Blood Urea Nitrogen 16 mg/dL (8-23); Carbon Dioxide 26 mEq/L (23-29); Chloride 99 mEq/L (98-107); Glucose 177 mg/dL (70-105); Osmolality,Calculated 282 (280-300); Sodium 133 mEq/L (136-145); eGFR For African Americans > 60 (> 60); eGFR For Non-African Americans > 60 (> 60)
[2021-04-25] MEDS: Insulin LISPRO 300 UNITS/3 ML VIAL SUBQ SCH ×3 (07:34→16:14)
[2021-04-25] MEDS: Insulin DETEMIR 100 UNIT/ML X5UNITS SUBQ SCH (07:46)
[2021-04-25] MEDS: Aspirin Enteric Coated 81 MG Tablet PO SCH (07:46)
[2021-04-25] MEDS: Isosorbide MONOnitrate (24 HR) 60 MG TAB.ER.24H PO SCH (07:47)
[2021-04-25] MEDS: Metoprolol 100 MG TABLET PO SCH (07:47)
[2021-04-25] MEDS: metroNIDAZOLE 500 MG TABLET PO SCH ×2 (07:47→16:14)
[2021-04-25] MEDS: Lactobacillus 1 EACH CAP.SPRINK PO SCH (07:47)
[2021-04-25] MEDS: cefTRIAXone 2,000 MG in Water for inj. (sterile) 20 ML IVP SCH (07:47)
[2021-04-25] MEDS: DilTIAZem CD (24hr) 240 MG CAP.ER.24H PO SCH (07:47)
[2021-04-25] MEDS: Furosemide 40 MG TABLET PO SCH (07:47)
[2021-04-25] MEDS ORDERED: *HR* Heparin 10,000 UNIT/10 ML VIAL ONE (08:26)
[2021-04-25] MEDS ORDERED: Heparin 1,000 UNITS/500 mL 500 ML ONE ×2 (08:26→09:55)
[2021-04-25] MEDS ORDERED: 0.9 % Sodium Chloride 1,000 ML ONE ×2 (08:26→08:34)
[2021-04-25] MEDS ORDERED: Isovue-300 200 mL Infus..BTL ONE (08:26)
[2021-04-25] MEDS ORDERED: *HR* FentaNYL (PF) 100 MCG/2 ML VIAL ONE (08:29)
[2021-04-25] MEDS ORDERED: *HR* Midazolam HCl 2 MG/2 ML VIAL ONE (08:29)
[2021-04-25] MEDS ORDERED: *HR* HYDROcodone/Acet 5/325 mg TABLET PO PRN (10:59)
[2021-04-25] MEDS ORDERED: Ondansetron 4 MG/2 ML VIAL IVP PRN (10:59)
[2021-04-25 16:55] VITALS: BP 146/73
[2021-04-25 17:36] LABS: Adenovirus Not Detected (Not Detect); Bordetella Pertussis Not Detected (Not Detect); Chlamydophila pneumoniae Not Detected (Not Detect); Coronavirus 229E Not Detected (Not Detect); Coronavirus HKU1 Not Detected (Not Detect); Coronavirus NL63 Not Detected (Not Detect); Coronavirus OC43 Not Detected (Not Detect); Human Metapneumovirus Not Detected (Not Detect); Human Rhinovirus/Enterovirus Not Detected (Not Detect); Influenza A Subtype 2009 H1 Not Detected (Not Detect); Influenza B Not Detected (Not Detect); Mycoplasma pneumoniae Not Detected (Not Detect); Parainfluenza Virus 1 Not Detected (Not Detect); Parainfluenza Virus 2 Not Detected (Not Detect); Parainfluenza Virus 3 Not Detected (Not Detect); Parainfluenza Virus 4 Not Detected (Not Detect); Respiratory Syncytial Virus Not Detected (Not Detect); SARS-CoV-2 Not Detected (Not Detect)
== END 2021-04-25 18:47 | disposition other institution (70) | DRG 853 ==
LOC: EMEROOARM 16:52 → 3ANU 16:52 → SUATTDRO 20:44 → 3ANU 20:46 → 2ANU 21:57 → SUATTDRO 04-19 18:30
PROVIDERS: ADMIT Family Medicine; ATTEND Family Medicine

== ENCOUNTER 2022-01-18 19:11 | Inpatient (IN) ==
[2022-01-18] MEDS ORDERED: Tdap (Boostrix) Vaccine 0.5 ML SYRINGE IM ONE (19:48)
[2022-01-18] MEDS ORDERED: Cefepime HCl 2,000 MG in 0.9 % Sodium Chloride 10 ML IVP ONE (19:48)
[2022-01-18] MEDS ORDERED: 0.9 % Sodium Chloride 1,000 ML IV ONE (19:48)
[2022-01-18 19:58] LABS: Basophils % 0.3 %; Eosinophils # 0.1 K/mcL (0.0-0.6); Eosinophils % 0.7 %; Hematocrit 31.4 % (37.5-50.1); Hemoglobin 9.7 g/dL (12.9-16.9); Immature Granulocytes % 0.3 % (0-4); Lymphocytes # 0.4 K/mcL (0.6-4.6); Lymphocytes % 4.3 %; Mean Corpuscular HGB Conc 30.9 g/dL (31.6-35.5); Mean Corpuscular Hemoglobin 28.8 pg (28.0-33.3); Mean Corpuscular Volume 93.2 fL (83.0-100.0); Mean Platelet Volume 9.3 fL (9.4-12.4); Monocytes # 0.8 K/mcL (0.0-1.3); Monocytes % 9.2 %; Neutrophils # 7.6 K/mcL (1.6-8.9); Platelet Count 314 K/mcL (140-400); Red Blood Count 3.37 M/mcL (4.19-5.50); Red Cell Distribution Width 15.1 % (11.5-14.5); Segmented Neutrophils % 85.2 %; White Blood Count 8.9 K/mcL (4.3-11.1)
[2022-01-18] MEDS ORDERED: Vancomycin 1,250 MG/262.5 ML IV.SOLN IVPB ONE (20:00)
[2022-01-18 20:06] LABS: INR 1.4
[2022-01-18 20:08] LABS: Activated Partial Thrombo Time 35.4 Seconds (26.0-36.0)
[2022-01-18 20:52] LABS: Bacteria,Urine Few per hpf (None-Few); Bilirubin,Urine Negative (Negative); Blood,Urine Negative (Negative); Clarity,Urine Clear (Clear); Color,Urine Yellow (Yellow); Glucose,Urine (UA) Normal (Normal); Ketones,Urine Negative (Negative); Leukocyte Esterase,Urine Negative (Negative); Mucus,Urine Few per lpf (None-Few); Nitrite,Urine Negative (Negative); PH,Urine 5.5 pH Units (5.0-8.0); Protein,Urine 70 mg/dL (Neg-Trace); RBC,Urine 0-3 per hpf (0-3); Specific Gravity,Urine 1.029 (1.010-1.025); Squamous Epithelial Cell,Urine Few per hpf (None-Few); Urobilinogen,Urine Normal (Normal); WBC,Urine 0-3 per hpf (0-3)
[2022-01-18 21:05] LABS: Influenza A PCR Negative (Negative); Influenza B PCR Negative (Negative); Resp. Syncytial Virus PCR Negative (Negative)
[2022-01-18 21:06] LABS: SARS-CoV-2 by PCR (In House) Negative (Negative)
[2022-01-18] MEDS ORDERED: Isovue-370 500 ML BOTTLE IVP ONE (21:27)
[2022-01-18 22:00] LABS: Troponin I < 0.03 ng/mL (< 0.04)
[2022-01-18 22:48] LABS: Alanine Aminotransferase 15 Units/L (7-52); Albumin 3.4 g/dL (3.5-5.7); Albumin/Globulin Ratio 0.8 (1.1-2.2); Alkaline Phosphatase 57 Units/L (34-104); Aspartate Amino Transferase 22 Units/L (13-39); BUN/Creatinine Ratio 22 (6-26); Bilirubin,Total 0.7 mg/dL (0.3-1.0); Blood Urea Nitrogen 19 mg/dL (8-23); C-Reactive Protein 140 mg/L (Less than 10); Calcium 9.2 mg/dL (8.6-10.3); Carbon Dioxide 19 mEq/L (23-29); Chloride 100 mEq/L (98-107); Globulin 4.3 g/dL (2.4-3.5); Glucose 64 mg/dL (70-105); Osmolality,Calculated 270 (280-300); Potassium 4.5 mEq/L (3.5-5.1); Sodium 130 mEq/L (136-145); Total Protein 7.7 g/dL (6.4-8.9); eGFR For African Americans > 60 (> 60); eGFR For Non-African Americans > 60 (> 60)
[2022-01-18 22:51] LABS: Bilirubin,Direct 0.1 mg/dL (0.0-0.2); Bilirubin,Indirect 0.6 mg/dL (0.0-1.0)
[2022-01-19] MEDS ORDERED: *HR* Dextrose 50 % in Water (Syg) 50 ML SYRINGE IVP PRN (03:28)
[2022-01-19] MEDS ORDERED: Dextrose 4 GM Chewable Tablets PO PRN (03:28)
[2022-01-19] MEDS ORDERED: D5% in Water 1,000 ML IVC PRN (03:28)
[2022-01-19] MEDS ORDERED: Ondansetron 4 MG/2 ML VIAL IVP PRN (03:29)
[2022-01-19] MEDS ORDERED: Naloxone 0.4 MG/ML INJ IVP PRN (03:29)
[2022-01-19] MEDS: Dextrose 4 GM Chewable Tablets PO PRN ×2 (05:00→05:39)
[2022-01-19] MEDS: Insulin LISPRO 300 UNITS/3 ML VIAL SUBQ SCH ×3 (05:13→18:03)
[2022-01-19] MEDS: Acetaminophen IV 1,000 MG/100 ML BAG IVPB SCH ×3 (05:46→18:03)
[2022-01-19] MEDS: Vancomycin 1,500 MG/265 ML IV.SOLN IVPB SCH ×2 (08:23→20:46)
[2022-01-19 08:25] LABS: Hematocrit 30.8 % (37.5-50.1); Hemoglobin 9.6 g/dL (12.9-16.9); Mean Corpuscular HGB Conc 31.2 g/dL (31.6-35.5); Mean Corpuscular Hemoglobin 28.9 pg (28.0-33.3); Mean Corpuscular Volume 92.8 fL (83.0-100.0); Mean Platelet Volume 9.5 fL (9.4-12.4); Platelet Count 265 K/mcL (140-400); Red Blood Count 3.32 M/mcL (4.19-5.50); Red Cell Distribution Width 15.3 % (11.5-14.5); White Blood Count 6.1 K/mcL (4.3-11.1)
[2022-01-19] MEDS: Cefepime HCl 2,000 MG in 0.9 % Sodium Chloride 10 ML IVPB SCH ×2 (08:26→16:08)
[2022-01-19] MEDS: Aspirin Enteric Coated 81 MG Tablet PO SCH (08:27)
[2022-01-19] MEDS: Metoprolol 100 MG TABLET PO SCH ×2 (08:27→20:46)
[2022-01-19] MEDS: Furosemide 40 MG TABLET PO SCH (08:27)
[2022-01-19] MEDS: Isosorbide MONOnitrate (24 HR) 60 MG TAB.ER.24H PO SCH (08:27)
[2022-01-19 08:42] LABS: % Iron Saturation 7 % (20-55); Iron 20 mcg/dL (65-175); Transferrin 217 mg/dL (203-362)
[2022-01-19 08:43] LABS: BUN/Creatinine Ratio 20 (6-26); Blood Urea Nitrogen 15 mg/dL (8-23); Calcium 8.7 mg/dL (8.6-10.3); Carbon Dioxide 25 mEq/L (23-29); Chloride 100 mEq/L (98-107); Chol/HDL Ratio 2.1 (0-4.9); Cholesterol 82 mg/dL (< 200); Glucose 86 mg/dL (70-105); HDL Cholesterol 39 mg/dL (40-59); LDL Cholesterol,Calculated 30 mg/dL (< 100); Magnesium 1.8 mg/dL (1.6-2.6); Osmolality,Calculated 274 (280-300); Potassium 4.1 mEq/L (3.5-5.1); Sodium 132 mEq/L (136-145); Triglycerides 63 mg/dL (< 150); Troponin I 0.03 ng/mL (< 0.04); eGFR For African Americans > 60 (> 60); eGFR For Non-African Americans > 60 (> 60)
[2022-01-19 09:00] LABS: Ferritin 95 ng/mL (20-250)
[2022-01-19] MEDS ORDERED: Insulin DETEMIR 100 UNIT/ML X5UNITS SUBQ SCH (09:00)
[2022-01-19 09:05] LABS: Folate 13.7 ng/mL (3.0-16.0)
[2022-01-19 10:43] LABS: Estimated Average Glucose 163 mg/dl; Hemoglobin A1C 7.3 %
[2022-01-19] MEDS: Levalbuterol Neb 1.25 MG/3 ML IH SCH ×3 (11:00→20:49)
[2022-01-19] MEDS: *HR* Heparin 5,000 UNIT/ML VIAL SQ SCH (18:03)
[2022-01-20] MEDS: Insulin LISPRO 300 UNITS/3 ML VIAL SUBQ SCH ×4 (00:51→17:41)
[2022-01-20] MEDS: Acetaminophen IV 1,000 MG/100 ML BAG IVPB SCH ×4 (00:59→17:40)
[2022-01-20] MEDS: Cefepime HCl 2,000 MG in 0.9 % Sodium Chloride 10 ML IVPB SCH ×3 (01:00→15:05)
[2022-01-20 01:17] LABS: Basophils # 0.1 K/mcL (0.0-0.2); Basophils % 0.8 %; Eosinophils # 0.2 K/mcL (0.0-0.6); Eosinophils % 2.8 %; Hematocrit 30.5 % (37.5-50.1); Hemoglobin 9.6 g/dL (12.9-16.9); Immature Granulocytes % 0.3 % (0-4); Lymphocytes # 0.8 K/mcL (0.6-4.6); Lymphocytes % 12.7 %; Mean Corpuscular HGB Conc 31.5 g/dL (31.6-35.5); Mean Corpuscular Hemoglobin 28.5 pg (28.0-33.3); Mean Corpuscular Volume 90.5 fL (83.0-100.0); Mean Platelet Volume 10.1 fL (9.4-12.4); Monocytes # 0.9 K/mcL (0.0-1.3); Monocytes % 13.5 %; Neutrophils # 4.6 K/mcL (1.6-8.9); Platelet Count 257 K/mcL (140-400); Red Blood Count 3.37 M/mcL (4.19-5.50); Segmented Neutrophils % 69.9 %; White Blood Count 6.5 K/mcL (4.3-11.1)
[2022-01-20 01:18] LABS: Hematocrit 30.7 % (37.5-50.1); Hemoglobin 9.7 g/dL (12.9-16.9); Mean Corpuscular HGB Conc 31.6 g/dL (31.6-35.5); Mean Corpuscular Hemoglobin 28.8 pg (28.0-33.3); Mean Corpuscular Volume 91.1 fL (83.0-100.0); Platelet Count 276 K/mcL (140-400); Red Blood Count 3.37 M/mcL (4.19-5.50); White Blood Count 6.8 K/mcL (4.3-11.1)
[2022-01-20 01:35] LABS: Magnesium 1.9 mg/dL (1.6-2.6); Phosphorous 2.4 mg/dL (2.7-4.5)
[2022-01-20 01:36] LABS: BUN/Creatinine Ratio 17 (6-26); Blood Urea Nitrogen 13 mg/dL (8-23); Calcium 8.8 mg/dL (8.6-10.3); Carbon Dioxide 24 mEq/L (23-29); Chloride 98 mEq/L (98-107); Glucose 152 mg/dL (70-105); Osmolality,Calculated 271 (280-300); Potassium 4.6 mEq/L (3.5-5.1); Sodium 129 mEq/L (136-145); eGFR For African Americans > 60 (> 60); eGFR For Non-African Americans > 60 (> 60)
[2022-01-20] MEDS: Levalbuterol Neb 1.25 MG/3 ML IH SCH ×4 (03:46→19:36)
[2022-01-20] MEDS: *HR* Heparin 5,000 UNIT/ML VIAL SQ SCH ×2 (06:17→17:40)
[2022-01-20] MEDS: Aspirin Enteric Coated 81 MG Tablet PO SCH (09:18)
[2022-01-20] MEDS: Furosemide 40 MG TABLET PO SCH (09:18)
[2022-01-20] MEDS: Metoprolol 100 MG TABLET PO SCH ×2 (09:18→21:29)
[2022-01-20] MEDS: Isosorbide MONOnitrate (24 HR) 60 MG TAB.ER.24H PO SCH (09:18)
[2022-01-20] MEDS: Insulin DETEMIR 100 UNIT/ML X5UNITS SUBQ SCH (11:17)
[2022-01-20] MEDS: Vancomycin 1,500 MG/265 ML IV.SOLN IVPB SCH (11:17)
[2022-01-21] MEDS: Acetaminophen IV 1,000 MG/100 ML BAG IVPB SCH ×4 (01:14→17:00)
[2022-01-21] MEDS: Insulin LISPRO 300 UNITS/3 ML VIAL SUBQ SCH ×4 (01:20→17:00)
[2022-01-21] MEDS: Cefepime HCl 2,000 MG in 0.9 % Sodium Chloride 10 ML IVPB SCH ×3 (01:22→15:57)
[2022-01-21] MEDS: Levalbuterol Neb 1.25 MG/3 ML IH SCH ×4 (04:28→19:54)
[2022-01-21 05:13] LABS: Basophils % 0.6 %; Eosinophils # 0.3 K/mcL (0.0-0.6); Eosinophils % 4.3 %; Hematocrit 28.8 % (37.5-50.1); Hemoglobin 9.1 g/dL (12.9-16.9); Immature Granulocytes % 0.3 % (0-4); Lymphocytes # 0.9 K/mcL (0.6-4.6); Lymphocytes % 12.6 %; Mean Corpuscular HGB Conc 31.6 g/dL (31.6-35.5); Mean Corpuscular Hemoglobin 28.5 pg (28.0-33.3); Mean Corpuscular Volume 90.3 fL (83.0-100.0); Mean Platelet Volume 9.3 fL (9.4-12.4); Monocytes # 0.8 K/mcL (0.0-1.3); Neutrophils # 4.9 K/mcL (1.6-8.9); Platelet Count 307 K/mcL (140-400); Red Blood Count 3.19 M/mcL (4.19-5.50); Segmented Neutrophils % 71.2 %; White Blood Count 6.8 K/mcL (4.3-11.1)
[2022-01-21 06:01] LABS: BUN/Creatinine Ratio 20 (6-26); Blood Urea Nitrogen 15 mg/dL (8-23); Calcium 8.9 mg/dL (8.6-10.3); Carbon Dioxide 24 mEq/L (23-29); Chloride 100 mEq/L (98-107); Glucose 143 mg/dL (70-105); Magnesium 1.9 mg/dL (1.6-2.6); Osmolality,Calculated 275 (280-300); Phosphorous 3.1 mg/dL (2.7-4.5); Potassium 4.5 mEq/L (3.5-5.1); Sodium 131 mEq/L (136-145); eGFR For African Americans > 60 (> 60); eGFR For Non-African Americans > 60 (> 60)
[2022-01-21] MEDS: *HR* Heparin 5,000 UNIT/ML VIAL SQ SCH ×2 (06:08→17:00)
[2022-01-21] MEDS: Isosorbide MONOnitrate (24 HR) 60 MG TAB.ER.24H PO SCH (08:57)
[2022-01-21] MEDS: Furosemide 40 MG TABLET PO SCH (08:57)
[2022-01-21] MEDS: Aspirin Enteric Coated 81 MG Tablet PO SCH (08:57)
[2022-01-21] MEDS: Metoprolol 100 MG TABLET PO SCH ×2 (08:57→19:36)
[2022-01-21] MEDS: Insulin DETEMIR 100 UNIT/ML X5UNITS SUBQ SCH (09:04)
[2022-01-22] MEDS: Cefepime HCl 2,000 MG in 0.9 % Sodium Chloride 10 ML IVPB SCH ×3 (00:42→14:04)
[2022-01-22] MEDS: Insulin LISPRO 300 UNITS/3 ML VIAL SUBQ SCH ×4 (00:45→18:23)
[2022-01-22] MEDS: Acetaminophen IV 1,000 MG/100 ML BAG IVPB SCH ×4 (00:49→18:02)
[2022-01-22] MEDS: Levalbuterol Neb 1.25 MG/3 ML IH SCH ×4 (04:08→20:40)
[2022-01-22] MEDS: *HR* Heparin 5,000 UNIT/ML VIAL SQ SCH ×2 (05:33→18:24)
[2022-01-22] MEDS ORDERED: 0.9 % Sodium Chloride 2,000 ML ONE (07:08)
[2022-01-22] MEDS ORDERED: Heparin 1,000 UNITS/500 mL 500 ML ONE (07:08)
[2022-01-22] MEDS ORDERED: *HR* Midazolam HCl 2 MG/2 ML VIAL ONE (07:08)
[2022-01-22] MEDS ORDERED: *HR* FentaNYL (PF) 100 MCG/2 ML VIAL ONE (07:08)
[2022-01-22] MEDS ORDERED: *HR* Heparin 10,000 UNIT/10 ML VIAL ONE (07:08)
[2022-01-22] MEDS ORDERED: Ondansetron 4 MG/2 ML VIAL IVP PRN (09:38)
[2022-01-22] MEDS ORDERED: Acetaminophen 325 MG TABLET PO PRN (09:38)
[2022-01-22] MEDS ORDERED: *HR* HYDROcodone/Acet 5/325 mg TABLET PO PRN (09:38)
[2022-01-22 12:33] LABS: Basophils % 0.4 %; Eosinophils # 0.3 K/mcL (0.0-0.6); Eosinophils % 4.9 %; Hemoglobin 10.3 g/dL (12.9-16.9); Immature Granulocytes % 0.6 % (0-4); Lymphocytes # 0.8 K/mcL (0.6-4.6); Lymphocytes % 15.6 %; Mean Corpuscular HGB Conc 31.2 g/dL (31.6-35.5); Mean Corpuscular Hemoglobin 28.5 pg (28.0-33.3); Mean Corpuscular Volume 91.2 fL (83.0-100.0); Mean Platelet Volume 9.8 fL (9.4-12.4); Monocytes # 0.5 K/mcL (0.0-1.3); Monocytes % 9.6 %; Neutrophils # 3.7 K/mcL (1.6-8.9); Platelet Count 283 K/mcL (140-400); Red Blood Count 3.62 M/mcL (4.19-5.50); Red Cell Distribution Width 14.9 % (11.5-14.5); Segmented Neutrophils % 68.9 %; White Blood Count 5.3 K/mcL (4.3-11.1)
[2022-01-22 12:54] LABS: BUN/Creatinine Ratio 21 (6-26); Blood Urea Nitrogen 15 mg/dL (8-23); Calcium 9.3 mg/dL (8.6-10.3); Carbon Dioxide 27 mEq/L (23-29); Chloride 99 mEq/L (98-107); Glucose 148 mg/dL (70-105); Osmolality,Calculated 276 (280-300); Phosphorous 2.9 mg/dL (2.7-4.5); Potassium 4.2 mEq/L (3.5-5.1); Sodium 131 mEq/L (136-145); Vancomycin,Trough 20 mcg/mL (5-10); eGFR For African Americans > 60 (> 60); eGFR For Non-African Americans > 60 (> 60)
[2022-01-22] MEDS: Isosorbide MONOnitrate (24 HR) 60 MG TAB.ER.24H PO SCH (13:56)
[2022-01-22] MEDS: Aspirin Enteric Coated 81 MG Tablet PO SCH (13:56)
[2022-01-22] MEDS: Furosemide 40 MG TABLET PO SCH (13:57)
[2022-01-22] MEDS: Metoprolol 100 MG TABLET PO SCH ×2 (14:00→21:43)
[2022-01-22] MEDS: Insulin DETEMIR 100 UNIT/ML X5UNITS SUBQ SCH (14:01)
[2022-01-23] MEDS: Cefepime HCl 2,000 MG in 0.9 % Sodium Chloride 10 ML IVPB SCH ×3 (00:56→16:31)
[2022-01-23] MEDS: Acetaminophen IV 1,000 MG/100 ML BAG IVPB SCH ×4 (00:57→15:43)
[2022-01-23] MEDS: Insulin LISPRO 300 UNITS/3 ML VIAL SUBQ SCH ×4 (01:10→17:48)
[2022-01-23] MEDS: Levalbuterol Neb 1.25 MG/3 ML IH SCH ×4 (04:08→20:34)
[2022-01-23] MEDS: *HR* Heparin 5,000 UNIT/ML VIAL SQ SCH ×2 (05:34→17:48)
[2022-01-23] MEDS: Metoprolol 100 MG TABLET PO SCH ×2 (08:56→20:42)
[2022-01-23] MEDS: Isosorbide MONOnitrate (24 HR) 60 MG TAB.ER.24H PO SCH (08:56)
[2022-01-23] MEDS: Furosemide 40 MG TABLET PO SCH (08:56)
[2022-01-23] MEDS: Aspirin Enteric Coated 81 MG Tablet PO SCH (08:56)
[2022-01-23] MEDS: Insulin DETEMIR 100 UNIT/ML X5UNITS SUBQ SCH (09:03)
[2022-01-23] MEDS ORDERED: *HR* FentaNYL (PF) 100 MCG/2 ML VIAL ONE (10:47)
[2022-01-23] MEDS ORDERED: *HR* Propofol 200 MG/20 ML VIAL IVP ONE (10:47)
[2022-01-23] MEDS ORDERED: Lidocaine -MPF 2% 5 ML VIAL ONE (10:48)
[2022-01-23] MEDS ORDERED: Ondansetron 4 MG/2 ML VIAL ONE (10:48)
[2022-01-23] MEDS ORDERED: Bupivacaine-MPF 0.25% 10 ML VIAL ONE (11:34)
[2022-01-23] MEDS ORDERED: Clindamycin 900 MG/50 ML 900 MG/50 ML IV.SOLN IVPB ONE (11:48)
[2022-01-23] MEDS ORDERED: Ringers Solution, Lactated 1,000 ML IVC SCH (12:00)
[2022-01-23] MEDS ORDERED: Vancomycin 1,000 MG, 0.9 % Sodium Chloride 1,000 ML IR ONE ×2 (12:00→15:02)
[2022-01-23] MEDS ORDERED: *HR* Phenylephrine 10 MG/ML VIAL ONE (12:14)
[2022-01-23] MEDS ORDERED: *HR* HYDROmorphone PF 0.5 MG/0.5 ML SYRINGE IVP PRN (12:18)
[2022-01-23] MEDS ORDERED: *HR* Labetalol 20 MG/4 ML SYRINGE IVP PRN (12:18)
[2022-01-23] MEDS ORDERED: Ondansetron 4 MG/2 ML VIAL IVP PRN ×3 (12:18→15:02)
[2022-01-23] MEDS ORDERED: *HR* OxyCODONE Immed Rel 5 MG TABLET PO PRN (12:18)
[2022-01-23] MEDS ORDERED: Albuterol 2.5 MG/3 ML NEBULIZER IH PRN (12:18)
[2022-01-23] MEDS ORDERED: Dextrose 4 GM Chewable Tablets PO PRN ×2 (15:02)
[2022-01-23] MEDS ORDERED: D5% in Water 1,000 ML IVC PRN (15:02)
[2022-01-23] MEDS ORDERED: Acetaminophen 325 MG TABLET PO PRN (15:02)
[2022-01-23] MEDS ORDERED: *HR* Dextrose 50 % in Water (Syg) 50 ML SYRINGE IVP PRN (15:02)
[2022-01-23] MEDS ORDERED: Naloxone 0.4 MG/ML INJ IVP PRN (15:02)
[2022-01-23] MEDS: Ringers Solution, Lactated 1,000 ML IVC SCH (15:12)
[2022-01-24] MEDS: Insulin LISPRO 300 UNITS/3 ML VIAL SUBQ SCH ×5 (00:40→16:42)
[2022-01-24] MEDS: Acetaminophen IV 1,000 MG/100 ML BAG IVPB SCH ×4 (00:41→18:12)
[2022-01-24] MEDS: Cefepime HCl 2,000 MG in 0.9 % Sodium Chloride 10 ML IVPB SCH ×3 (00:41→16:03)
[2022-01-24 01:41] LABS: Basophils % 0.3 %; Hematocrit 31.8 % (37.5-50.1); Immature Granulocytes % 0.5 % (0-4); Lymphocytes # 0.6 K/mcL (0.6-4.6); Mean Corpuscular HGB Conc 31.4 g/dL (31.6-35.5); Mean Corpuscular Hemoglobin 28.6 pg (28.0-33.3); Mean Corpuscular Volume 90.9 fL (83.0-100.0); Monocytes # 0.4 K/mcL (0.0-1.3); Monocytes % 4.9 %; Neutrophils # 6.6 K/mcL (1.6-8.9); Platelet Count 311 K/mcL (140-400); Red Cell Distribution Width 14.6 % (11.5-14.5); Segmented Neutrophils % 86.3 %; White Blood Count 7.6 K/mcL (4.3-11.1)
[2022-01-24 01:57] LABS: BUN/Creatinine Ratio 23 (6-26); Blood Urea Nitrogen 21 mg/dL (8-23); Calcium 8.9 mg/dL (8.6-10.3); Carbon Dioxide 26 mEq/L (23-29); Chloride 95 mEq/L (98-107); Glucose 300 mg/dL (70-105); Magnesium 2.2 mg/dL (1.6-2.6); Osmolality,Calculated 282 (280-300); Phosphorous 2.8 mg/dL (2.7-4.5); Potassium 4.8 mEq/L (3.5-5.1); Sodium 129 mEq/L (136-145); eGFR For African Americans > 60 (> 60); eGFR For Non-African Americans > 60 (> 60)
[2022-01-24] MEDS: Levalbuterol Neb 1.25 MG/3 ML IH SCH ×4 (03:39→19:40)
[2022-01-24] MEDS: *HR* Heparin 5,000 UNIT/ML VIAL SQ SCH ×2 (06:12→18:13)
[2022-01-24] MEDS: Aspirin Enteric Coated 81 MG Tablet PO SCH (08:16)
[2022-01-24] MEDS: Furosemide 40 MG TABLET PO SCH (08:16)
[2022-01-24] MEDS: Metoprolol 100 MG TABLET PO SCH ×2 (08:16→21:49)
[2022-01-24] MEDS: Isosorbide MONOnitrate (24 HR) 60 MG TAB.ER.24H PO SCH (08:17)
[2022-01-24] MEDS ORDERED: Insulin DETEMIR 100 UNIT/ML X5UNITS SUBQ SCH (09:00)
[2022-01-24] MEDS: Insulin DETEMIR 100 UNIT/ML X5UNITS SUBQ SCH ×2 (10:11→21:49)
[2022-01-24] MEDS: Ringers Solution, Lactated 1,000 ML IVC SCH (16:05)
[2022-01-24] MEDS ORDERED: Insulin LISPRO 300 UNITS/3 ML VIAL SUBQ SCH (17:00)
[2022-01-25] MEDS: Cefepime HCl 2,000 MG in 0.9 % Sodium Chloride 10 ML IVPB SCH ×4 (01:11→23:59)
[2022-01-25] MEDS: Acetaminophen IV 1,000 MG/100 ML BAG IVPB SCH ×4 (01:11→17:00)
[2022-01-25 03:09] LABS: Hematocrit 27.2 % (37.5-50.1); Hemoglobin 8.6 g/dL (12.9-16.9)
[2022-01-25 03:29] LABS: BUN/Creatinine Ratio 24 (6-26); Blood Urea Nitrogen 23 mg/dL (8-23); Calcium 8.7 mg/dL (8.6-10.3); Carbon Dioxide 26 mEq/L (23-29); Chloride 99 mEq/L (98-107); Glucose 281 mg/dL (70-105); Magnesium 2.1 mg/dL (1.6-2.6); Osmolality,Calculated 286 (280-300); Phosphorous 2.9 mg/dL (2.7-4.5); Potassium 4.5 mEq/L (3.5-5.1); Sodium 131 mEq/L (136-145); eGFR For African Americans > 60 (> 60); eGFR For Non-African Americans > 60 (> 60)
[2022-01-25] MEDS: Levalbuterol Neb 1.25 MG/3 ML IH SCH ×4 (03:57→19:47)
[2022-01-25] MEDS: *HR* Heparin 5,000 UNIT/ML VIAL SQ SCH ×2 (06:02→16:54)
[2022-01-25] MEDS: Insulin DETEMIR 100 UNIT/ML X5UNITS SUBQ SCH ×2 (08:48→21:55)
[2022-01-25] MEDS: Insulin LISPRO 300 UNITS/3 ML VIAL SUBQ SCH ×6 (08:48→16:56)
[2022-01-25] MEDS: Furosemide 40 MG TABLET PO SCH (08:51)
[2022-01-25] MEDS: Aspirin Enteric Coated 81 MG Tablet PO SCH (08:51)
[2022-01-25] MEDS: Metoprolol 100 MG TABLET PO SCH ×2 (08:51→21:54)
[2022-01-25] MEDS: Isosorbide MONOnitrate (24 HR) 60 MG TAB.ER.24H PO SCH (08:51)
[2022-01-25] MEDS: Sennosides/Docusate Sodium TABLET PO PRN (13:42)
[2022-01-26] MEDS: Acetaminophen IV 1,000 MG/100 ML BAG IVPB SCH ×4 (00:08→17:10)
[2022-01-26] MEDS: Sennosides/Docusate Sodium TABLET PO PRN (01:06)
[2022-01-26] MEDS: Levalbuterol Neb 1.25 MG/3 ML IH SCH ×2 (04:24→08:02)
[2022-01-26 04:42] LABS: Hemoglobin 9.4 g/dL (12.9-16.9)
[2022-01-26 05:06] LABS: BUN/Creatinine Ratio 23 (6-26); Blood Urea Nitrogen 22 mg/dL (8-23); Calcium 9.1 mg/dL (8.6-10.3); Carbon Dioxide 24 mEq/L (23-29); Chloride 99 mEq/L (98-107); Glucose 172 mg/dL (70-105); Magnesium 2.1 mg/dL (1.6-2.6); Osmolality,Calculated 281 (280-300); Phosphorous 2.7 mg/dL (2.7-4.5); Potassium 4.6 mEq/L (3.5-5.1); Sodium 132 mEq/L (136-145); eGFR For African Americans > 60 (> 60); eGFR For Non-African Americans > 60 (> 60)
[2022-01-26] MEDS: *HR* Heparin 5,000 UNIT/ML VIAL SQ SCH ×2 (05:25→17:09)
[2022-01-26] MEDS ORDERED: Bisacodyl 10 MG RECTAL SUPPOSITORY RC PRN (06:07)
[2022-01-26] MEDS: Cefepime HCl 2,000 MG in 0.9 % Sodium Chloride 10 ML IVPB SCH ×2 (08:47→17:09)
[2022-01-26] MEDS: Isosorbide MONOnitrate (24 HR) 60 MG TAB.ER.24H PO SCH (08:48)
[2022-01-26] MEDS: Furosemide 40 MG TABLET PO SCH (08:48)
[2022-01-26] MEDS: Metoprolol 100 MG TABLET PO SCH ×2 (08:48→20:26)
[2022-01-26] MEDS: Aspirin Enteric Coated 81 MG Tablet PO SCH (08:48)
[2022-01-26] MEDS: Insulin LISPRO 300 UNITS/3 ML VIAL SUBQ SCH ×6 (08:49→17:11)
[2022-01-26] MEDS: Insulin DETEMIR 100 UNIT/ML X5UNITS SUBQ SCH ×2 (08:49→20:27)
[2022-01-26] MEDS ORDERED: Levalbuterol Neb 1.25 MG/3 ML IH PRN (12:40)
[2022-01-26] MEDS: *HR* HYDROcodone/Acet 5/325 mg TABLET PO PRN (20:27)
[2022-01-27] MEDS: Cefepime HCl 2,000 MG in 0.9 % Sodium Chloride 10 ML IVPB SCH ×4 (01:39→23:58)
[2022-01-27] MEDS: Acetaminophen IV 1,000 MG/100 ML BAG IVPB SCH ×5 (01:40→23:58)
[2022-01-27] MEDS: *HR* Heparin 5,000 UNIT/ML VIAL SQ SCH ×2 (05:40→16:43)
[2022-01-27 07:46] LABS: BUN/Creatinine Ratio 26 (6-26); Blood Urea Nitrogen 21 mg/dL (8-23); Calcium 8.9 mg/dL (8.6-10.3); Carbon Dioxide 27 mEq/L (23-29); Chloride 98 mEq/L (98-107); Glucose 152 mg/dL (70-105); Magnesium 2.2 mg/dL (1.6-2.6); Osmolality,Calculated 278 (280-300); Phosphorous 2.9 mg/dL (2.7-4.5); Potassium 4.5 mEq/L (3.5-5.1); Sodium 131 mEq/L (136-145); eGFR For African Americans > 60 (> 60); eGFR For Non-African Americans > 60 (> 60)
[2022-01-27] MEDS: Metoprolol 100 MG TABLET PO SCH ×2 (08:43→20:33)
[2022-01-27] MEDS: metroNIDAZOLE 500 MG TABLET PO SCH ×3 (08:43→20:33)
[2022-01-27] MEDS: Isosorbide MONOnitrate (24 HR) 60 MG TAB.ER.24H PO SCH (08:43)
[2022-01-27] MEDS: Aspirin Enteric Coated 81 MG Tablet PO SCH (08:44)
[2022-01-27] MEDS: Furosemide 40 MG TABLET PO SCH (08:44)
[2022-01-27] MEDS: Insulin DETEMIR 100 UNIT/ML X5UNITS SUBQ SCH ×2 (08:54→20:34)
[2022-01-27] MEDS: Insulin LISPRO 300 UNITS/3 ML VIAL SUBQ SCH ×6 (08:54→16:57)
[2022-01-27] MEDS: Vancomycin 1,250 MG/262.5 ML IV.SOLN IVPB SCH (16:51)
[2022-01-28 01:12] LABS: Basophils # 0.1 K/mcL (0.0-0.2); Basophils % 0.7 %; Eosinophils # 0.3 K/mcL (0.0-0.6); Hematocrit 31.1 % (37.5-50.1); Immature Granulocytes % 2.1 % (0-4); Lymphocytes # 1.7 K/mcL (0.6-4.6); Lymphocytes % 21.4 %; Mean Corpuscular HGB Conc 32.2 g/dL (31.6-35.5); Mean Corpuscular Hemoglobin 29.6 pg (28.0-33.3); Mean Platelet Volume 9.5 fL (9.4-12.4); Monocytes # 0.8 K/mcL (0.0-1.3); Monocytes % 9.6 %; Platelet Count 385 K/mcL (140-400); Red Blood Count 3.38 M/mcL (4.19-5.50); Red Cell Distribution Width 15.5 % (11.5-14.5); Segmented Neutrophils % 62.2 %
[2022-01-28 01:37] LABS: BUN/Creatinine Ratio 26 (6-26); Blood Urea Nitrogen 24 mg/dL (8-23); Calcium 8.9 mg/dL (8.6-10.3); Carbon Dioxide 24 mEq/L (23-29); Chloride 98 mEq/L (98-107); Glucose 200 mg/dL (70-105); Magnesium 2.1 mg/dL (1.6-2.6); Osmolality,Calculated 280 (280-300); Phosphorous 3.1 mg/dL (2.7-4.5); Potassium 4.6 mEq/L (3.5-5.1); Sodium 130 mEq/L (136-145); eGFR For African Americans > 60 (> 60); eGFR For Non-African Americans > 60 (> 60)
[2022-01-28] MEDS: *HR* Heparin 5,000 UNIT/ML VIAL SQ SCH ×2 (05:43→16:30)
[2022-01-28] MEDS: Acetaminophen IV 1,000 MG/100 ML BAG IVPB SCH ×3 (05:43→16:32)
[2022-01-28] MEDS: Cefepime HCl 2,000 MG in 0.9 % Sodium Chloride 10 ML IVPB SCH ×2 (08:50→16:31)
[2022-01-28] MEDS: Metoprolol 100 MG TABLET PO SCH ×2 (08:51→21:34)
[2022-01-28] MEDS: metroNIDAZOLE 500 MG TABLET PO SCH ×3 (08:52→21:35)
[2022-01-28] MEDS: Isosorbide MONOnitrate (24 HR) 60 MG TAB.ER.24H PO SCH (08:52)
[2022-01-28] MEDS: Aspirin Enteric Coated 81 MG Tablet PO SCH (08:52)
[2022-01-28] MEDS: Furosemide 40 MG TABLET PO SCH (08:52)
[2022-01-28] MEDS: Insulin DETEMIR 100 UNIT/ML X5UNITS SUBQ SCH ×2 (09:02→21:35)
[2022-01-28] MEDS: Insulin LISPRO 300 UNITS/3 ML VIAL SUBQ SCH ×6 (09:03→16:36)
[2022-01-28] MEDS: Vancomycin 1,250 MG/262.5 ML IV.SOLN IVPB SCH (16:31)
[2022-01-29] MEDS: Acetaminophen IV 1,000 MG/100 ML BAG IVPB SCH ×4 (00:30→17:26)
[2022-01-29] MEDS: Cefepime HCl 2,000 MG in 0.9 % Sodium Chloride 10 ML IVPB SCH ×4 (00:35→23:57)
[2022-01-29] MEDS: *HR* Heparin 5,000 UNIT/ML VIAL SQ SCH ×2 (05:24→16:30)
[2022-01-29] MEDS: Sennosides/Docusate Sodium TABLET PO PRN ×2 (05:27→16:37)
[2022-01-29 06:14] LABS: Basophils # 0.1 K/mcL (0.0-0.2); Basophils % 1.2 %; Eosinophils # 0.4 K/mcL (0.0-0.6); Eosinophils % 5.2 %; Hematocrit 34.3 % (37.5-50.1); Hemoglobin 10.7 g/dL (12.9-16.9); Immature Granulocytes % 1.6 % (0-4); Lymphocytes # 1.8 K/mcL (0.6-4.6); Lymphocytes % 23.7 %; Mean Corpuscular HGB Conc 31.2 g/dL (31.6-35.5); Mean Corpuscular Hemoglobin 28.7 pg (28.0-33.3); Mean Platelet Volume 9.7 fL (9.4-12.4); Monocytes # 0.8 K/mcL (0.0-1.3); Monocytes % 10.7 %; Neutrophils # 4.3 K/mcL (1.6-8.9); Platelet Count 383 K/mcL (140-400); Red Blood Count 3.73 M/mcL (4.19-5.50); Red Cell Distribution Width 15.8 % (11.5-14.5); Segmented Neutrophils % 57.6 %; White Blood Count 7.5 K/mcL (4.3-11.1)
[2022-01-29 06:34] LABS: BUN/Creatinine Ratio 32 (6-26); Blood Urea Nitrogen 26 mg/dL (8-23); Calcium 9.4 mg/dL (8.6-10.3); Carbon Dioxide 25 mEq/L (23-29); Chloride 98 mEq/L (98-107); Glucose 171 mg/dL (70-105); Magnesium 2.3 mg/dL (1.6-2.6); Osmolality,Calculated 283 (280-300); Phosphorous 3.3 mg/dL (2.7-4.5); Potassium 4.6 mEq/L (3.5-5.1); Sodium 132 mEq/L (136-145); eGFR For African Americans > 60 (> 60); eGFR For Non-African Americans > 60 (> 60)
[2022-01-29] MEDS: Insulin LISPRO 300 UNITS/3 ML VIAL SUBQ SCH ×6 (07:57→17:27)
[2022-01-29] MEDS: Aspirin Enteric Coated 81 MG Tablet PO SCH (08:04)
[2022-01-29] MEDS: Metoprolol 100 MG TABLET PO SCH ×2 (08:04→22:02)
[2022-01-29] MEDS: Furosemide 40 MG TABLET PO SCH (08:05)
[2022-01-29] MEDS: metroNIDAZOLE 500 MG TABLET PO SCH (08:05)
[2022-01-29] MEDS: Isosorbide MONOnitrate (24 HR) 60 MG TAB.ER.24H PO SCH (08:05)
[2022-01-29] MEDS: Insulin DETEMIR 100 UNIT/ML X5UNITS SUBQ SCH ×2 (08:13→22:02)
[2022-01-29] MEDS: Vancomycin 1,250 MG/262.5 ML IV.SOLN IVPB SCH (16:29)
[2022-01-29] MEDS: Lactobacillus 1 EACH CAP.SPRINK PO SCH (22:02)
[2022-01-30] MEDS: Acetaminophen IV 1,000 MG/100 ML BAG IVPB SCH ×3 (05:09→11:50)
[2022-01-30 06:22] LABS: % Iron Saturation 10 % (20-55); Iron 37 mcg/dL (65-175); Transferrin 267 mg/dL (203-362)
[2022-01-30] MEDS: *HR* Heparin 5,000 UNIT/ML VIAL SQ SCH ×2 (06:25→16:56)
[2022-01-30 06:27] LABS: Ferritin 44 ng/mL (20-250)
[2022-01-30 06:32] LABS: Folate 9.8 ng/mL (3.0-16.0)
[2022-01-30] MEDS ORDERED: Iron Sucrose Complex 400 MG in 0.9 % Sodium Chloride 250 ML IVPB ONE (07:32)
[2022-01-30] MEDS: Aspirin Enteric Coated 81 MG Tablet PO SCH (08:15)
[2022-01-30] MEDS: Metoprolol 100 MG TABLET PO SCH ×2 (08:15→21:11)
[2022-01-30] MEDS: Furosemide 40 MG TABLET PO SCH (08:15)
[2022-01-30] MEDS: Isosorbide MONOnitrate (24 HR) 60 MG TAB.ER.24H PO SCH (08:15)
[2022-01-30] MEDS: Lactobacillus 1 EACH CAP.SPRINK PO SCH ×2 (08:15→21:11)
[2022-01-30] MEDS: Cyanocobalamin (B-12) 1,000 MCG TABLET PO SCH (08:15)
[2022-01-30] MEDS: Multivit/Ca/Min/Fe/FA 1 TAB TABLET PO SCH (08:15)
[2022-01-30] MEDS: Insulin DETEMIR 100 UNIT/ML X5UNITS SUBQ SCH ×2 (08:16→21:15)
[2022-01-30] MEDS: Insulin LISPRO 300 UNITS/3 ML VIAL SUBQ SCH ×6 (08:17→16:54)
[2022-01-30] MEDS: Cefepime HCl 2,000 MG in 0.9 % Sodium Chloride 10 ML IVPB SCH ×2 (08:28→16:45)
[2022-01-30] MEDS ORDERED: Insulin Human Regular 5 UNIT in 0.9 % Sodium Chloride 10 ML IV ONE (11:54)
[2022-01-30] MEDS: Vancomycin 1,250 MG/262.5 ML IV.SOLN IVPB SCH (16:49)
[2022-01-30] MEDS: *HR* HYDROcodone/Acet 5/325 mg TABLET PO PRN (21:12)
[2022-01-31] MEDS: Cefepime HCl 2,000 MG in 0.9 % Sodium Chloride 10 ML IVPB SCH ×3 (00:18→16:05)
[2022-01-31] MEDS: *HR* Heparin 5,000 UNIT/ML VIAL SQ SCH ×2 (06:12→16:35)
[2022-01-31] MEDS: Furosemide 40 MG TABLET PO SCH (08:57)
[2022-01-31] MEDS: Lactobacillus 1 EACH CAP.SPRINK PO SCH ×2 (08:57→20:55)
[2022-01-31] MEDS: Isosorbide MONOnitrate (24 HR) 60 MG TAB.ER.24H PO SCH (08:57)
[2022-01-31] MEDS: Multivit/Ca/Min/Fe/FA 1 TAB TABLET PO SCH (08:57)
[2022-01-31] MEDS: Cyanocobalamin (B-12) 1,000 MCG TABLET PO SCH (08:57)
[2022-01-31] MEDS: Metoprolol 100 MG TABLET PO SCH ×2 (08:57→20:55)
[2022-01-31] MEDS: Aspirin Enteric Coated 81 MG Tablet PO SCH (08:58)
[2022-01-31] MEDS: Insulin LISPRO 300 UNITS/3 ML VIAL SUBQ SCH ×6 (09:01→16:37)
[2022-01-31] MEDS: Insulin DETEMIR 100 UNIT/ML X5UNITS SUBQ SCH ×2 (09:14→21:03)
[2022-01-31] MEDS: Vancomycin 1,250 MG/262.5 ML IV.SOLN IVPB SCH (16:37)
[2022-02-01] MEDS: Cefepime HCl 2,000 MG in 0.9 % Sodium Chloride 10 ML IVPB SCH ×3 (00:41→14:46)
[2022-02-01] MEDS: *HR* Heparin 5,000 UNIT/ML VIAL SQ SCH (04:35)
[2022-02-01 04:51] LABS: Basophils # 0.1 K/mcL (0.0-0.2); Basophils % 1.1 %; Eosinophils # 0.3 K/mcL (0.0-0.6); Eosinophils % 4.7 %; Hematocrit 32.6 % (37.5-50.1); Hemoglobin 9.8 g/dL (12.9-16.9); Immature Granulocytes % 0.7 % (0-4); Lymphocytes # 1.6 K/mcL (0.6-4.6); Lymphocytes % 26.5 %; Mean Corpuscular HGB Conc 30.1 g/dL (31.6-35.5); Mean Corpuscular Volume 93.1 fL (83.0-100.0); Mean Platelet Volume 9.6 fL (9.4-12.4); Monocytes # 0.7 K/mcL (0.0-1.3); Monocytes % 11.4 %; Neutrophils # 3.4 K/mcL (1.6-8.9); Platelet Count 288 K/mcL (140-400); Red Cell Distribution Width 15.9 % (11.5-14.5); Segmented Neutrophils % 55.6 %; White Blood Count 6.1 K/mcL (4.3-11.1)
[2022-02-01 05:09] LABS: BUN/Creatinine Ratio 36 (6-26); Blood Urea Nitrogen 29 mg/dL (8-23); Calcium 9.3 mg/dL (8.6-10.3); Carbon Dioxide 25 mEq/L (23-29); Chloride 102 mEq/L (98-107); Glucose 151 mg/dL (70-105); Osmolality,Calculated 285 (280-300); Potassium 4.4 mEq/L (3.5-5.1); Sodium 133 mEq/L (136-145); eGFR For African Americans > 60 (> 60); eGFR For Non-African Americans > 60 (> 60)
[2022-02-01 06:45] VITALS: O2SAT 97
[2022-02-01] MEDS: Insulin LISPRO 300 UNITS/3 ML VIAL SUBQ SCH ×4 (09:31→13:15)
[2022-02-01] MEDS: Multivit/Ca/Min/Fe/FA 1 TAB TABLET PO SCH (09:43)
[2022-02-01] MEDS: Lactobacillus 1 EACH CAP.SPRINK PO SCH (09:43)
[2022-02-01] MEDS: Furosemide 40 MG TABLET PO SCH (09:43)
[2022-02-01] MEDS: Isosorbide MONOnitrate (24 HR) 60 MG TAB.ER.24H PO SCH (09:43)
[2022-02-01] MEDS: Metoprolol 100 MG TABLET PO SCH (09:43)
[2022-02-01] MEDS: Aspirin Enteric Coated 81 MG Tablet PO SCH (09:43)
[2022-02-01] MEDS: Cyanocobalamin (B-12) 1,000 MCG TABLET PO SCH (09:44)
[2022-02-01] MEDS: Insulin DETEMIR 100 UNIT/ML X5UNITS SUBQ SCH (10:06)
[2022-02-01 10:27] VITALS: BP 132/73; PULSE 79; TEMP 97.5
[2022-02-01 11:15] LABS: Influenza A PCR Negative (Negative); Influenza B PCR Negative (Negative); Resp. Syncytial Virus PCR Negative (Negative)
[2022-02-01 11:16] LABS: SARS-CoV-2 by PCR (In House) Negative (Negative)
== END 2022-02-01 15:36 | disposition critical access hospital (66) | DRG 629 ==
LOC: EMEROOARM 19:11 → 3BNU 19:11 → SUATTDRO 01-19 03:29 → 3BNU 01-19 04:36
PROVIDERS: ADMIT Internal Medicine; ATTEND Internal Medicine

== ENCOUNTER 2022-02-17 12:48 | Inpatient (IN) ==
[2022-02-17] MEDS ORDERED: Ondansetron 4 MG/2 ML VIAL IVP PRN (22:02)
[2022-02-17] MEDS ORDERED: *HR* Promethazine 25 MG/ML VIAL IM PRN (22:02)
[2022-02-17] MEDS ORDERED: Acetaminophen 325 MG TABLET PO PRN (22:02)
[2022-02-17] MEDS ORDERED: Naloxone 0.4 MG/ML INJ IVP PRN (22:02)
[2022-02-17] MEDS ORDERED: Melatonin 3 MG TABLET PO PRN (22:02)
[2022-02-18] MEDS ORDERED: *HR* Heparin 5,000 UNIT/ML VIAL IVP PRN ×2 (01:44)
[2022-02-18] MEDS ORDERED: Heparin 25,000UNIT/250ML 1/2NS 25,000 UNIT/250 ML IV.SOLN IVC SCH (01:45)
[2022-02-18] MEDS ORDERED: Perflutren Lipid Microsphere 1.3 ML in 0.9 % Sodium Chloride 8.7 ML IVP PRN (01:48)
[2022-02-18] MEDS ORDERED: Sennosides/Docusate Sodium TABLET PO PRN (01:48)
[2022-02-18] MEDS ORDERED: *HR* Dextrose 50 % in Water (Syg) 50 ML SYRINGE IVP PRN (01:50)
[2022-02-18] MEDS ORDERED: D5% in Water 1,000 ML IVC PRN (01:50)
[2022-02-18] MEDS ORDERED: Dextrose 4 GM Chewable Tablets PO PRN ×2 (01:50)
[2022-02-18 05:54] LABS: Basophils # 0.1 K/mcL (0.0-0.2); Basophils % 0.9 %; Eosinophils # 0.3 K/mcL (0.0-0.6); Eosinophils % 4.7 %; Hematocrit 29.1 % (37.5-50.1); Hemoglobin 9.1 g/dL (12.9-16.9); Immature Granulocytes % 0.4 % (0-4); Lymphocytes # 1.2 K/mcL (0.6-4.6); Lymphocytes % 23.5 %; Mean Corpuscular HGB Conc 31.3 g/dL (31.6-35.5); Mean Corpuscular Hemoglobin 29.6 pg (28.0-33.3); Mean Corpuscular Volume 94.8 fL (83.0-100.0); Mean Platelet Volume 10.7 fL (9.4-12.4); Monocytes # 0.5 K/mcL (0.0-1.3); Monocytes % 9.7 %; Neutrophils # 3.2 K/mcL (1.6-8.9); Platelet Count 152 K/mcL (140-400); Red Blood Count 3.07 M/mcL (4.19-5.50); Red Cell Distribution Width 17.3 % (11.5-14.5); Segmented Neutrophils % 60.8 %; White Blood Count 5.3 K/mcL (4.3-11.1)
[2022-02-18] MEDS: Insulin LISPRO 300 UNITS/3 ML VIAL SUBQ SCH ×3 (05:54→17:28)
[2022-02-18 06:00] LABS: INR 1.3; Prothrombin Time 14.1 Seconds (9.4-12.1)
[2022-02-18 06:21] LABS: BUN/Creatinine Ratio 33 (6-26); Blood Urea Nitrogen 39 mg/dL (8-23); Calcium 9.8 mg/dL (8.6-10.3); Carbon Dioxide 24 mEq/L (23-29); Chloride 103 mEq/L (98-107); Glucose 113 mg/dL (70-105); Osmolality,Calculated 292 (280-300); Potassium 4.6 mEq/L (3.5-5.1); Sodium 136 mEq/L (136-145); eGFR For African Americans > 60 (> 60); eGFR For Non-African Americans 59 (> 60)
[2022-02-18] MEDS: Aspirin Enteric Coated 81 MG Tablet PO SCH (07:55)
[2022-02-18] MEDS: Cefepime HCl 2,000 MG in 0.9 % Sodium Chloride 10 ML IVP SCH ×2 (07:55→21:08)
[2022-02-18] MEDS: Cyanocobalamin (B-12) 1,000 MCG TABLET PO SCH (07:55)
[2022-02-18] MEDS: Furosemide 40 MG TABLET PO SCH (07:55)
[2022-02-18] MEDS ORDERED: Isosorbide MONOnitrate (24 HR) 60 MG TAB.ER.24H PO SCH (09:00)
[2022-02-18] MEDS ORDERED: Metoprolol 100 MG TABLET PO SCH (09:00)
[2022-02-18] MEDS: amLODIPine 5 MG TABLET PO SCH (12:06)
[2022-02-18] MEDS: Insulin DETEMIR 100 UNIT/ML X5UNITS SUBQ SCH (21:11)
[2022-02-19] MEDS: Insulin LISPRO 300 UNITS/3 ML VIAL SUBQ SCH ×5 (00:27→20:41)
[2022-02-19] MEDS ORDERED: Regadenoson 0.4 MG/5 ML SYRINGE IVP ONE (06:43)
[2022-02-19] MEDS: amLODIPine 5 MG TABLET PO SCH (11:00)
[2022-02-19] MEDS: Aspirin Enteric Coated 81 MG Tablet PO SCH (11:00)
[2022-02-19] MEDS: Furosemide 40 MG TABLET PO SCH (11:01)
[2022-02-19] MEDS: Cyanocobalamin (B-12) 1,000 MCG TABLET PO SCH (11:02)
[2022-02-19] MEDS: Cefepime HCl 2,000 MG in 0.9 % Sodium Chloride 10 ML IVP SCH ×2 (11:20→20:38)
[2022-02-19] MEDS: Isosorbide MONOnitrate (24 HR) 30 MG TAB.ER.24H PO SCH (16:25)
[2022-02-19] MEDS: Insulin DETEMIR 100 UNIT/ML X5UNITS SUBQ SCH (20:41)
[2022-02-20] MEDS: Vancomycin 500 MG in 0.9 % Sodium Chloride Mini Bag 100 ML IVPB SCH (05:05)
[2022-02-20] MEDS: *HR* Enoxaparin 40 MG/0.4 ML SYRINGE SQ SCH (05:08)
[2022-02-20] MEDS: Cefepime HCl 2,000 MG in 0.9 % Sodium Chloride 10 ML IVP SCH ×2 (07:30→21:15)
[2022-02-20] MEDS: Aspirin Enteric Coated 81 MG Tablet PO SCH (07:35)
[2022-02-20] MEDS: Cyanocobalamin (B-12) 1,000 MCG TABLET PO SCH (07:35)
[2022-02-20] MEDS: amLODIPine 5 MG TABLET PO SCH (07:40)
[2022-02-20] MEDS: Isosorbide MONOnitrate (24 HR) 30 MG TAB.ER.24H PO SCH (07:41)
[2022-02-20] MEDS: Furosemide 40 MG TABLET PO SCH (07:41)
[2022-02-20] MEDS: Insulin LISPRO 300 UNITS/3 ML VIAL SUBQ SCH ×4 (07:50→21:16)
[2022-02-20] MEDS: Insulin DETEMIR 100 UNIT/ML X5UNITS SUBQ SCH (21:16)
[2022-02-21] MEDS: *HR* Enoxaparin 40 MG/0.4 ML SYRINGE SQ SCH (05:52)
[2022-02-21] MEDS: Vancomycin 500 MG in 0.9 % Sodium Chloride Mini Bag 100 ML IVPB SCH (05:58)
[2022-02-21 06:16] LABS: Basophils % 0.9 %; Eosinophils # 0.3 K/mcL (0.0-0.6); Eosinophils % 5.7 %; Hematocrit 29.6 % (37.5-50.1); Hemoglobin 9.2 g/dL (12.9-16.9); Immature Granulocytes % 0.2 % (0-4); Lymphocytes # 0.9 K/mcL (0.6-4.6); Mean Corpuscular HGB Conc 31.1 g/dL (31.6-35.5); Mean Corpuscular Hemoglobin 29.6 pg (28.0-33.3); Mean Corpuscular Volume 95.2 fL (83.0-100.0); Mean Platelet Volume 10.4 fL (9.4-12.4); Monocytes # 0.6 K/mcL (0.0-1.3); Monocytes % 13.1 %; Neutrophils # 2.6 K/mcL (1.6-8.9); Platelet Count 166 K/mcL (140-400); Red Blood Count 3.11 M/mcL (4.19-5.50); Red Cell Distribution Width 17.5 % (11.5-14.5); Segmented Neutrophils % 60.1 %; White Blood Count 4.4 K/mcL (4.3-11.1)
[2022-02-21 06:38] LABS: Calcium 9.8 mg/dL (8.6-10.3); Potassium 4.3 mEq/L (3.5-5.1)
[2022-02-21] MEDS: Isosorbide MONOnitrate (24 HR) 30 MG TAB.ER.24H PO SCH (08:15)
[2022-02-21] MEDS: Aspirin Enteric Coated 81 MG Tablet PO SCH (08:15)
[2022-02-21] MEDS: amLODIPine 5 MG TABLET PO SCH (08:15)
[2022-02-21] MEDS: Furosemide 40 MG TABLET PO SCH (08:16)
[2022-02-21] MEDS: Cyanocobalamin (B-12) 1,000 MCG TABLET PO SCH (08:16)
[2022-02-21] MEDS: Cefepime HCl 2,000 MG in 0.9 % Sodium Chloride 10 ML IVP SCH ×2 (08:18→20:12)
[2022-02-21] MEDS: Insulin LISPRO 300 UNITS/3 ML VIAL SUBQ SCH ×5 (08:20→21:22)
[2022-02-21] MEDS: Insulin DETEMIR 100 UNIT/ML X5UNITS SUBQ SCH (21:23)
[2022-02-22 04:55] LABS: BUN/Creatinine Ratio 25 (6-26); Blood Urea Nitrogen 39 mg/dL (8-23); eGFR For African Americans 52 (> 60); eGFR For Non-African Americans 43 (> 60)
[2022-02-22] MEDS: *HR* Enoxaparin 40 MG/0.4 ML SYRINGE SQ SCH (05:41)
[2022-02-22] MEDS: Vancomycin 500 MG in 0.9 % Sodium Chloride Mini Bag 100 ML IVPB SCH (05:42)
[2022-02-22] MEDS: Cefepime HCl 2,000 MG in 0.9 % Sodium Chloride 10 ML IVP SCH ×2 (09:17→21:07)
[2022-02-22] MEDS: Aspirin Enteric Coated 81 MG Tablet PO SCH (09:17)
[2022-02-22] MEDS: Cyanocobalamin (B-12) 1,000 MCG TABLET PO SCH (09:17)
[2022-02-22] MEDS: Isosorbide MONOnitrate (24 HR) 30 MG TAB.ER.24H PO SCH (09:17)
[2022-02-22] MEDS: amLODIPine 5 MG TABLET PO SCH (09:17)
[2022-02-22] MEDS: Insulin LISPRO 300 UNITS/3 ML VIAL SUBQ SCH ×4 (09:18→22:03)
[2022-02-22] MEDS: 0.9 % Sodium Chloride 1,000 ML IVC SCH (16:49)
[2022-02-22] MEDS: Insulin DETEMIR 100 UNIT/ML X5UNITS SUBQ SCH (22:04)
[2022-02-23 03:43] LABS: Calcium 9.7 mg/dL (8.6-10.3); Potassium 4.4 mEq/L (3.5-5.1)
[2022-02-23] MEDS: Vancomycin 500 MG in 0.9 % Sodium Chloride Mini Bag 100 ML IVPB SCH (05:19)
[2022-02-23] MEDS: *HR* Enoxaparin 40 MG/0.4 ML SYRINGE SQ SCH (05:20)
[2022-02-23] MEDS: 0.9 % Sodium Chloride 1,000 ML IVC SCH ×2 (05:20→20:45)
[2022-02-23] MEDS: Insulin LISPRO 300 UNITS/3 ML VIAL SUBQ SCH ×4 (08:24→20:44)
[2022-02-23] MEDS: Cefepime HCl 2,000 MG in 0.9 % Sodium Chloride 10 ML IVP SCH ×2 (08:25→20:41)
[2022-02-23] MEDS: Aspirin Enteric Coated 81 MG Tablet PO SCH (08:27)
[2022-02-23] MEDS: Cyanocobalamin (B-12) 1,000 MCG TABLET PO SCH (08:27)
[2022-02-23] MEDS: Isosorbide MONOnitrate (24 HR) 30 MG TAB.ER.24H PO SCH (08:27)
[2022-02-23] MEDS: amLODIPine 5 MG TABLET PO SCH (08:27)
[2022-02-23 08:54] LABS: Amorphous Sediment,Urine Few per hpf (None-Few); Bilirubin,Urine Negative (Negative); Blood,Urine Small (Negative); Clarity,Urine Clear (Clear); Color,Urine Light-Yellow (Yellow); Glucose,Urine (UA) 200 mg/dL (Normal); Ketones,Urine Negative (Negative); Leukocyte Esterase,Urine Trace (Negative); Mucus,Urine Few per lpf (None-Few); Nitrite,Urine Negative (Negative); Protein,Urine 100 mg/dL (Neg-Trace); RBC,Urine 0-3 per hpf (0-3); Specific Gravity,Urine 1.014 (1.010-1.025); Squamous Epithelial Cell,Urine Few per hpf (None-Few); Urobilinogen,Urine Normal (Normal)
[2022-02-23 08:55] LABS: Protein/Creatinine Ratio,Urine 3.11 mg/mg (0.00-0.20); Sodium, Urine 84.5 mEq/L
[2022-02-23 09:01] LABS: Uric Acid 3.1 mg/dL (2.3-7.6)
[2022-02-23] MEDS: Linezolid 600 MG TABLET PO SCH (20:40)
[2022-02-23] MEDS ORDERED: Insulin DETEMIR 100 UNIT/ML X5UNITS SUBQ SCH ×2 (21:00)
[2022-02-24] MEDS: *HR* Enoxaparin 40 MG/0.4 ML SYRINGE SQ SCH (05:12)
[2022-02-24] MEDS: 0.9 % Sodium Chloride 1,000 ML IVC SCH (08:37)
[2022-02-24] MEDS: Cefepime HCl 2,000 MG in 0.9 % Sodium Chloride 10 ML IVP SCH ×2 (08:38→20:26)
[2022-02-24] MEDS: Insulin LISPRO 300 UNITS/3 ML VIAL SUBQ SCH ×3 (08:42→17:59)
[2022-02-24] MEDS: Aspirin Enteric Coated 81 MG Tablet PO SCH (08:43)
[2022-02-24] MEDS: amLODIPine 5 MG TABLET PO SCH (08:44)
[2022-02-24] MEDS: Isosorbide MONOnitrate (24 HR) 30 MG TAB.ER.24H PO SCH (08:44)
[2022-02-24] MEDS: Linezolid 600 MG TABLET PO SCH ×2 (08:44→20:26)
[2022-02-24] MEDS: Cyanocobalamin (B-12) 1,000 MCG TABLET PO SCH (08:44)
[2022-02-24 13:30] LABS: Calcium 9.1 mg/dL (8.6-10.3); Potassium 4.8 mEq/L (3.5-5.1)
[2022-02-24 17:03] LABS: Adenovirus Not Detected (Not Detect); Bordetella Pertussis Not Detected (Not Detect); Chlamydophila pneumoniae Not Detected (Not Detect); Coronavirus 229E Not Detected (Not Detect); Coronavirus HKU1 Not Detected (Not Detect); Coronavirus NL63 Not Detected (Not Detect); Coronavirus OC43 Not Detected (Not Detect); Human Metapneumovirus Not Detected (Not Detect); Human Rhinovirus/Enterovirus Not Detected (Not Detect); Influenza A Subtype 2009 H1 Not Detected (Not Detect); Influenza B Not Detected (Not Detect); Mycoplasma pneumoniae Not Detected (Not Detect); Parainfluenza Virus 1 Not Detected (Not Detect); Parainfluenza Virus 2 Not Detected (Not Detect); Parainfluenza Virus 3 Not Detected (Not Detect); Parainfluenza Virus 4 Not Detected (Not Detect); Respiratory Syncytial Virus Not Detected (Not Detect); SARS-CoV-2 Not Detected (Not Detect)
[2022-02-24 20:23] VITALS: BP 146/74; PULSE 72; TEMP 97.6; O2SAT 96
== END 2022-02-24 21:30 | disposition other institution (70) | DRG 281 ==
LOC: 3ANU → SUATTDRO 21:08
PROVIDERS: ADMIT Internal Medicine; ATTEND Hospitalist